=== PATIENT | male | born 1990 | race Caucasian/White ===

== ENCOUNTER 2016-04-14 03:57 | Emergency (ER) | payer SELFPAY ==
[2016-04-14 05:28] LABS: ABSOLUTE EOSINOPHILS # (AUTO) 0.6 10^3/uL (0.0-0.6); ABSOLUTE MONOCYTES (AUTO) 0.9 10^3/uL (0.1-1.4); BASOPHILS % (AUTO) 0.4 % (0-2); EOSINOPHILS % (AUTO) 4.9 % (0-6); HEMATOCRIT 44.6 % (37.9-51.0); HEMOGLOBIN 15.2 g/dL (13.5-17.0); LYMPHOCYTES % (AUTO) 17.3 % (13-45); MEAN CORPUSCULAR HEMOGLOBIN 29.7 pg (27.0-33.4); MEAN CORPUSCULAR HGB CONC 34.1 g/dL (32.0-36.0); MEAN CORPUSCULAR VOLUME 87 fl (80-97); MONOCYTES % (AUTO) 8.2 % (3-13); RED BLOOD COUNT 5.13 10^6/uL (4.35-5.55); RED CELL DISTRIBUTION WIDTH 12.9 % (11.5-14.0); SEGMENTED NEUTROPHILS % (AUTO) 69.2 % (42-78); WHITE BLOOD COUNT 11.6 10^3/uL (4.0-10.5)
[2016-04-14 05:45] LABS: AMORPHOUS SEDIMENT,URINE TRACE /HPF; APPEARANCE,URINE CLOUDY; BILIRUBIN,URINE NEGATIVE (NEGATIVE); GLUCOSE, URINE NEGATIVE (NEGATIVE); KETONES,URINE NEGATIVE (NEGATIVE); LEUKOCYTE ESTERASE,URINE NEGATIVE (NEGATIVE); NITRITE,URINE NEGATIVE (NEGATIVE); PROTEIN,URINE NEGATIVE (NEGATIVE); URINE SPECIFIC GRAVITY 1.013; UROBILINOGEN,URINE NEGATIVE mg/dL (<2.0)
[2016-04-14 05:53] LABS: ALANINE AMINOTRANSFERASE 29 U/L (21-72); ALBUMIN 3.5 g/dL (3.5-5.0); ALKALINE PHOSPHATASE 82 U/L (38-126); ANION GAP 9 (5-19); ASPARTATE AMINO TRANSFERASE 26 U/L (17-59); BILIRUBIN,TOTAL 0.5 mg/dL (0.2-1.3); BLOOD UREA NITROGEN 15 mg/dL (7-20); CALCIUM 9.2 mg/dL (8.4-10.2); CARBON DIOXIDE 26 mmol/L (22-30); CHLORIDE 106 mmol/L (98-107); CREATININE RESULT 1.07 mg/dL (0.52-1.25); GLUCOSE 86 mg/dL (75-110); POTASSIUM 4.1 mmol/L (3.6-5.0); SODIUM 141.3 mmol/L (137-145); TOTAL PROTEIN 6.9 g/dL (6.3-8.2)
[2016-04-14 05:55] LABS: ALCOHOL < 10 mg/dL (NONE DETECTED); URINE BARBITURATES SCREEN NEGATIVE; URINE METHADONE SCREEN NEGATIVE; URINE OPIATES LOW NEGATIVE; URINE PHENCYCLIDINE SCREEN NEGATIVE
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
[2016-04-14 09:28] VITALS: BP 112/57
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
--- NOTE | 2016-04-15 08:18 | EKG REPORT ---
SEVERITY:- NORMAL ECG - SINUS RHYTHM : Confirmed by: Samantha Montalvo MD 15-Apr-2016 08:17:02
== END 2016-04-14 11:35 | disposition home or self-care (01) ==
LOC: ER 03:57
DX: F25.9 Schizoaffective disorder, unspecified (principal)
CPT/HCPCS: 36415; 80053; 80307; 81001; 85025; 93005; 93010; 99285

== ENCOUNTER 2016-07-15 13:15 | Emergency (ER) | payer SELFPAY ==
--- NOTE | 2016-07-15 13:48 | ER Document Report ---
ED Psych Disorder / Suicide - General Mode of Arrival: Ambulatory TRAVEL OUTSIDE OF THE [place] IN LAST 30 DAYS: No - HPI Patient complains to provider of: Other Normal mood: No Similar symptoms previously: Yes <SUZI JUNG - Last Filed: 07/15/16 14:00> <STANLEY PATEL - Last Filed: 07/15/16 18:52> - General Chief Complaint: Psych Problem Stated Complaint: PSYCH EVAL Time Seen by Provider: 07/15/16 13:36 Notes: Patient is a 25-year-old male that presents to the emergency department today secondary to auditory hallucinations. According to friend at bedside the patient has diagnosed schizophrenia and has not been sleeping recently. Patient denies any pain. (SUZI JUNG) - Related Data Allergies/Adverse Reactions: No Known Allergies Allergy (Verified 04/14/16 04:00) Home Medications: Current Home Medications Amphet Asp/Amphet/D-Amphet [Dextroamp-Amphet ER 20 mg Cap] 07/15/16 [History] Aripiprazole [Abilify Maintena] 300 mg IM Q30D 07/15/16 [History] Prazosin HCl [Prazosin HCl] 1 cap PO DAILY 07/15/16 [History] Past Medical History - General Information source: [facility] Records - Social History Smoking Status: Unknown if Ever Smoked Cigarette use (# per day): No Family History: Reviewed & Not Pertinent Patient has suicidal ideation: No Patient has homicidal ideation: No Pulmonary Medical History: Reports: Hx Asthma Psychiatric Medical History: Reports: Hx Attention Deficit Hyperactivity Disorder, Hx Schizophrenia - Immunizations Immunizations up to date: Yes Hx Diphtheria, Pertussis, Tetanus Vaccination: Yes <SUZI JUNG - Last Filed: 07/15/16 14:00> Review of Systems - Review of Systems -: Yes ROS unobtainable due to patient's medical condition <SUZI JUNG - Last Filed: 07/15/16 14:00> - Review of Systems Constitutional: No symptoms reported EENT: No symptoms reported Cardiovascular: No symptoms reported Respiratory: No symptoms reported Gastrointestinal: No symptoms reported Genitourinary: No symptoms reported Male Genitourinary: No symptoms reported Musculoskeletal: No symptoms reported Skin: No symptoms reported Hematologic/Lymphatic: No symptoms reported Neurological/Psychological: See HPI <STANLEY PATEL - Last Filed: 07/15/16 18:52> Physical Exam - Vital signs Interpretation: Normal - General General appearance: Appears well, Alert - HEENT Head: Normocephalic, Atraumatic Eyes: Normal Pupils: PERRL - Respiratory Respiratory status: No respiratory distress Chest status: Nontender Breath sounds: Normal Chest palpation: Normal - Cardiovascular Rhythm: Regular Heart sounds: Normal auscultation Murmur: No - Abdominal Inspection: Normal Distension: No distension Bowel sounds: Normal Tenderness: Nontender Organomegaly: No organomegaly - Back Back: Normal, Nontender - Extremities General upper extremity: Normal inspection, Nontender, Normal color, Normal ROM , Normal temperature General lower extremity: Normal inspection, Nontender, Normal color, Normal ROM , Normal temperature, Normal weight bearing. No: Sami's sign - Neurological Neuro grossly intact: Yes Cognition: Normal Orientation: AAOx4 [place] Coma Scale Eye Opening: Spontaneous [place] Coma Scale Verbal: Oriented [place] Coma Scale Motor: Obeys Commands [place] Coma Scale Total: 15 Speech: Normal Motor strength normal: LUE, RUE, LLE, RLE Sensory: Normal - Psychological Associated symptoms: Anxious, Restlessness - Skin Skin Temperature: Warm Skin Moisture: Dry Skin Color: Normal <STANLEY PATEL - Last Filed: 07/15/16 18:52> - Vital signs Vitals: Temp Pulse Resp BP Pulse Ox 98.2 F 107 H 14 114/79 97 07/15/16 13:19 07/15/16 13:19 07/15/16 13:19 07/15/16 13:19 07/15/16 13:19 Course - Laboratory Result Diagrams: 07/15/16 13:49 07/15/16 13:49 <SUZI JUNG - Last Filed: 07/15/16 14:00> - Laboratory Result Diagrams: 07/15/16 13:49 07/15/16 13:49 <STANLEY PATEL - Last Filed: 07/15/16 18:52> - Re-evaluation Re-evalutation: 07/15/16 14:33 Patient is a 25-year-old male who was brought in by a friend of his for hallucinations and persecutory delusions 07/15/16 18:12 Patient is medically stable at this time. Patient has been evaluated by mental health and they recommend that he be monitored overnight and be given [id number] IM in am. Medication orders have been put in for this patient. Patient was discussed with his mother states that the patient has been increasingly agitated lately. Patient is stable at this time and will be reevaluated by mental health in the morning. (STANLEY PATEL) - Vital Signs Vital signs: Temp Pulse Resp BP Pulse Ox 98.2 F 64 16 129/66 H 96 07/15/16 18:22 07/15/16 18:22 07/15/16 18:22 07/15/16 18:22 07/15/16 18:22 - Laboratory Laboratory results interpreted by me: 07/15/16 07/15/16 07/15/16 13:49 13:49 13:55 RBC 5.66 H Chloride 108 H Urine Ketones TRACE H Salicylates < 1.0 L Acetaminophen < 10 L Discharge <SUZI JUNG - Last Filed: 07/15/16 14:00> <STANLEY PATEL - Last Filed: 07/15/16 18:52> - Discharge Clinical Impression: Hallucinations Schizophrenia Qualifiers: Schizophrenia type: other Qualified Code(s): F20.89 - Other schizophrenia; F20.8 - Other schizophrenia Condition: Stable Disposition: OTHER Scribe Attestation: 07/15/16 18:51 I personally performed the services described in the documentation, reviewed and edited the documentation which was dictated to the scribe in my presence, and it accurately records my words and actions. (STANLEY PATEL) Scribe Documentation - Scribe Written by Lexus:: Lexus Guevara, 07/15/2016 1404 acting as scribe for :: Maia <SUZI JUNG - Last Filed: 07/15/16 14:00>
[2016-07-15 14:01] LABS: ABSOLUTE BASOPHILS # (AUTO) 0.1 10^3/uL (0.0-0.2); ABSOLUTE EOSINOPHILS # (AUTO) 0.2 10^3/uL (0.0-0.6); ABSOLUTE LYMPHOCYTES (AUTO) 1.3 10^3/uL (0.5-4.7); ABSOLUTE MONOCYTES (AUTO) 0.7 10^3/uL (0.1-1.4); ABSOLUTE NEUT (AUTO) 7.5 10^3/uL (1.7-8.2); BASOPHILS % (AUTO) 0.5 % (0-2); EOSINOPHILS % (AUTO) 1.9 % (0-6); HEMATOCRIT 49.4 % (37.9-51.0); HEMOGLOBIN 16.8 g/dL (13.5-17.0); LYMPHOCYTES % (AUTO) 13.4 % (13-45); MEAN CORPUSCULAR HEMOGLOBIN 29.7 pg (27.0-33.4); MEAN CORPUSCULAR VOLUME 87 fl (80-97); MONOCYTES % (AUTO) 7.2 % (3-13); RED BLOOD COUNT 5.66 10^6/uL (4.35-5.55); RED CELL DISTRIBUTION WIDTH 13.3 % (11.5-14.0); WHITE BLOOD COUNT 9.8 10^3/uL (4.0-10.5)
[2016-07-15 14:13] LABS: APPEARANCE,URINE SLIGHTLY-CLOUDY; BILIRUBIN,URINE NEGATIVE (NEGATIVE); GLUCOSE, URINE NEGATIVE (NEGATIVE); KETONES,URINE TRACE mg/dL (NEGATIVE); LEUKOCYTE ESTERASE,URINE NEGATIVE (NEGATIVE); NITRITE,URINE NEGATIVE (NEGATIVE); PROTEIN,URINE NEGATIVE (NEGATIVE); URINE SPECIFIC GRAVITY 1.026; UROBILINOGEN,URINE NEGATIVE mg/dL (<2.0)
[2016-07-15 14:18] LABS: ALANINE AMINOTRANSFERASE 31 U/L (21-72); ALBUMIN 4.4 g/dL (3.5-5.0); ALKALINE PHOSPHATASE 81 U/L (38-126); ANION GAP 11 (5-19); ASPARTATE AMINO TRANSFERASE 21 U/L (17-59); BILIRUBIN,DIRECT 0.4 mg/dL (0.0-0.4); BILIRUBIN,TOTAL 0.8 mg/dL (0.2-1.3); BLOOD UREA NITROGEN 18 mg/dL (7-20); CALCIUM 9.8 mg/dL (8.4-10.2); CARBON DIOXIDE 23 mmol/L (22-30); CHLORIDE 108 mmol/L (98-107); CREATININE RESULT 0.89 mg/dL (0.52-1.25); GLUCOSE 96 mg/dL (75-110); POTASSIUM 4.2 mmol/L (3.6-5.0); SODIUM 142.4 mmol/L (137-145); TOTAL PROTEIN 7.9 g/dL (6.3-8.2)
[2016-07-15 14:21] LABS: ALCOHOL < 10 mg/dL (NONE DETECTED)
[2016-07-15 14:29] LABS: URINE BARBITURATES SCREEN NEGATIVE; URINE METHADONE SCREEN NEGATIVE; URINE OPIATES LOW UNCONFIRMED POSITIVE; URINE PHENCYCLIDINE SCREEN NEGATIVE
--- NOTE | 2016-07-15 18:40 | EKG REPORT ---
SEVERITY:- NORMAL ECG - SINUS RHYTHM : Confirmed by: Rudolph Dean MD 15-Jul-2016 18:39:37
[2016-07-15] MEDS ORDERED: FLUPHENAZINE HCL 2.5 MG TABLET PO SCH (19:00)
[2016-07-15] MEDS ORDERED: CLONAZEPAM 1 MG TABLET PO ONE (20:36)
--- NOTE | 2016-07-15 20:36 | ER Document Report ---
Doctor's Note Notes: 07/15/16 20:36 Patient's mother reports that the patient takes Klonopin 0.5 mg 3 times a day for anxiety and agitation. We have not yet confirmed this with the pharmacy. I will give him a single dose this evening and we will attempt to confirm this with pharmacy in the morning.
[2016-07-15] MEDS ORDERED: NICOTINE 21 MG/24 HR PATCH.TD24 TD ONE (21:25)
[2016-07-16] MEDS ORDERED: ZOLPIDEM TARTRATE 5 MG TABLET PO PRN ×2 (01:24→01:54)
[2016-07-16] MEDS ORDERED: CLONAZEPAM 1 MG TABLET PO ONE (06:30)
--- NOTE | 2016-07-16 09:24 | ER Document Report ---
Doctor's Note Notes: 07/16/16 09:24 Patient evaluated at bedside, resting comfortably on stretcher, no needs at this time, chart and lab findings were reviewed as well as vital signs, pending plan and disposition per mental health
[2016-07-16] MEDS ORDERED: CLONAZEPAM 1 MG TABLET PO SCH ×2 (10:00→14:00)
[2016-07-16] MEDS ORDERED: FLUPHENAZINE HCL 2.5 MG TABLET PO SCH (10:00)
[2016-07-16] MEDS ORDERED: HALOPERIDOL 5 MG TABLET PO SCH (10:15)
[2016-07-16] MEDS ORDERED: DIPHENHYDRAMINE HCL 50 MG/ML VIAL IM ONE ×2 (13:34→16:45)
[2016-07-16] MEDS ORDERED: LORAZEPAM INJ 2 MG/1 ML VIAL IM ONE ×2 (13:34→16:45)
[2016-07-16] MEDS ORDERED: HALOPERIDOL LACTATE INJ 5 MG/1 ML VIAL IM ONE (16:45)
[2016-07-16] MEDS ORDERED: HALOPERIDOL 5 MG TABLET PO ONE (18:15)
[2016-07-16] MEDS ORDERED: NICOTINE 21 MG/24 HR PATCH.TD24 TD ONE (18:57)
[2016-07-16] MEDS ORDERED: (PENDING PHARMACY ID) (Prazosin Hcl [Prazosin Hcl] 1 MG) PO SCH (22:00)
[2016-07-16] MEDS ORDERED: DOXAZOSIN MESYLATE 1 MG TABLET PO SCH (22:00)
[2016-07-16] MEDS: OLANZAPINE INJ/PF 10 MG SDV IM PRN (22:45)
[2016-07-17] MEDS ORDERED: HALOPERIDOL 5 MG TABLET PO SCH (10:00)
[2016-07-17] MEDS: OLANZAPINE INJ/PF 10 MG SDV IM PRN (14:42)
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
--- NOTE | 2016-07-17 15:33 | PSYCHOLOGICAL NOTE ---
Psych Note - Psych Note Psych Note: Patient is a 25-year-old male that presents to the emergency department today secondary to auditory hallucinations. According to friend at bedside the patient has diagnosed schizophrenia and has not been sleeping recently. Patient denies any pain. Conducted checking with patient Patient states he "feels good exactly the same when he did yesterday." Patient is noted by [facility] staff to be pacing easily agitated and interacting with hallucinations. Clinician notified patient eloped however was quickly found and brought back to [facility] ED. behavior has dramatically increased necessitating 4 point restraint. 295.90 (F20.9) schizophrenia per history provided by patient's mother Impression\\plan: Patient is recommended for IVC. Patient is demonstrating increased psychosis symptoms. patient appeared to be guarded yesterday; however , today he appears to be disinhibited and is now actively engaging with his internal stimuli. Patient will be reevaluated. Dr. Huitron was consulted and the care and management of this patient; attending physician is in agreement with recommendations and disposition.
--- NOTE | 2016-07-17 15:42 | ER Document Report ---
ED Psych Disorder / Suicide - General Chief Complaint: Psych Problem Stated Complaint: PSYCH EVAL Time Seen by Provider: 07/15/16 13:36 Mode of Arrival: Ambulatory TRAVEL OUTSIDE OF THE [place] IN LAST 30 DAYS: No - HPI Notes: Patient is a 25-year-old male that presents to the emergency department today secondary to auditory hallucinations. According to friend at bedside the patient has diagnosed schizophrenia and has not been sleeping recently. Patient denies any pain. Conducted checking with patient Patient disclosed he is doing well. He continued disclosed that he has a hard time being forced to stay. Patient is observed talking to himself while alone however when clinician entered the room patient immediately looked up and engaged. Patient eye contact was well-maintained. Patient's thought processes are currently organized and linear. Patient pain that he is like at being made to stay. Patient psychosis appears to be managed. Clinician spoke with patient's mother Disclosed the patient does not do well when forced to stay within 4 yepez. She states that normally he just walks miles all day. She continued disclosed that she does see an improvement from yesterday. She agrees the patient will improve significantly with his behavior if discharged. She states she is willing to ensure the patient follows up with mental health appointments. 295.90 (F20.9) schizophrenia per history provided by patient's mother Impression\\plan: Patient is recommended for rescind of IVC and is considered psychiatrically clear for discharge. Patient no longer meets criteria per [place] GS 120 2C. Patient denies suicidal and homicidal ideation. Patient psychosis appears to be functioning at baseline per patient's mother. Patient's behavior has increasingly become agitated however this is believed to be due to forced to be remain within 4 yepez. Patient normally spends his days walking around outside. Mother and roommates agreed to be part of discharge plan to ensure patient follows mental health recommendations of taking medication and following up with provider. Dr. Huitron was consulted and the care and management of this patient; attending physician is in agreement with recommendations and disposition. - Related Data Allergies/Adverse Reactions: No Known Allergies Allergy (Verified 04/14/16 04:00) Home Medications: Current Home Medications Aripiprazole [Abilify Maintena] 300 mg IM Q30D 07/15/16 [History] Prazosin HCl [Prazosin HCl] 1 mg PO QHS 07/15/16 [History] Zolpidem Tartrate [Ambien 5 mg Tablet] 5 mg PO HSP PRN 07/15/16 [History] Past Medical History - General Information source: [facility] Records - Social History Smoking Status: Unknown if Ever Smoked Cigarette use (# per day): No Chew tobacco use (# tins/day): No Drug Abuse: Marijuana Family History: Reviewed & Not Pertinent Patient has suicidal ideation: No Patient has homicidal ideation: No Pulmonary Medical History: Reports: Hx Asthma Renal/ Medical History: Denies: Hx Peritoneal Dialysis Psychiatric Medical History: Reports: Hx Attention Deficit Hyperactivity Disorder, Hx Schizophrenia Surgical Hx: Negative - Immunizations Immunizations up to date: Yes Hx Diphtheria, Pertussis, Tetanus Vaccination: Yes Physical Exam - Vital signs Vitals: Temp Pulse Resp BP Pulse Ox 98.2 F 107 H 14 114/79 97 07/15/16 13:19 07/15/16 13:19 07/15/16 13:19 07/15/16 13:19 07/15/16 13:19 Course - Vital Signs Vital signs: Temp Pulse Resp BP Pulse Ox 98.1 F 61 18 125/70 99 07/17/16 05:55 07/17/16 05:55 07/17/16 05:55 07/17/16 05:55 07/17/16 05:55 - Laboratory Result Diagrams: 07/15/16 13:49 07/15/16 13:49 Laboratory results interpreted by me: 07/15/16 07/15/16 07/15/16 13:49 13:49 13:55 RBC 5.66 H Chloride 108 H Urine Ketones TRACE H Salicylates < 1.0 L Acetaminophen < 10 L Discharge - Discharge Clinical Impression: Hallucinations Schizophrenia Qualifiers: Schizophrenia type: other Qualified Code(s): F20.89 - Other schizophrenia Condition: Stable Disposition: HOME, SELF-CARE Additional Instructions: Schizophrenia Schizophrenia is a chemical disorder that affects how the brain functions. The exact cause is unknown, but it tends to run in families. It is NOT caused by emotional trauma. Schizophrenia causes disordered thinking, including unusual beliefs and inability to "process" happenings around the patient. Patients with schizophrenia benefit greatly from medicine. These medicines are called antipsychotics. Never stop the medicine without the doctor 's approval. Counselling may help the patient deal with his disease. Schizophrenics require a very ordered environment. Stresses and sudden changes may bring out symptoms. Drugs and alcohol abuse may become problems. Contact the counsellor or crisis line if there are thoughts of suicide or of harming others, or if you become aware of unusual thoughts or beliefs Hallucinations You seem to be having hallucinations. Hallucinations are seeing, hearing, or feeling things that don't exist. These symptoms commonly occur with drug abuse and schizophrenia. Drugs like PCP, LSD, MDMA, peyote, and "psychedelic mushrooms" can cause frightening hallucinations. Users of methamphetamine or crack cocaine often see and feel bugs crawling on their skin. Patients with schizophrenia may hear voices that no one else can hear. The delusions of schizophrenia often involve conspiracies or relationships that are not real. When symptoms are due to drug abuse, the mental state usually improves as the drug wears off. Someone you trust should be with you until you are better, to protect you and calm your fears. Tranquilizer medicine is helpful at controlling hallucinations, anxiety, and deluded thoughts. Get a proper diet and enough sleep. Most patients do very well when they get proper medical treatment and social support. You should return at once if your symptoms get worse, if you are having suicidal thoughts or thoughts about hurting others, or if you feel that you are in danger. AT ANY TIME, IF YOUR SYMPTOMS CHANGE SIGNIFICANTLY OR WORSEN OR YOU DEVELOP NEW SYMPTOMS, RETURN TO THE EMERGENCY DEPARTMENT IMMEDIATELY FOR RE-EVALUATION. OUR GOAL IS TO PROVIDE EXCELLENT MEDICAL CARE! WE HOPE THAT WE HAVE MET YOUR EXPECTATIONS DURING YOUR EMERGENCY DEPARTMENT VISIT AND THAT YOU FEEL YOU HAVE RECEIVED EXCELLENT CARE! Please follow-up with your mental health provider [facility] within 3-5 days. Referrals: [facility] [Outside] - Follow up in 3-5 days Scribe Attestation: 07/15/16 18:51 I personally performed the services described in the documentation, reviewed and edited the documentation which was dictated to the scribe in my presence, and it accurately records my words and actions.
--- NOTE | 2016-07-17 15:52 | ER Document Report ---
Doctor's Note Notes: 07/17/16 15:49 He has been resting comfortably, his mother is in the emergency room and willing to take him home, ensure his safety as well as follow-up, patient is in agreement with this plan and feels safe to be discharged as well, he was advised to follow-up with his mental health provider in the next 2-3 days or return if symptoms worsen Discharge - Discharge Clinical Impression: Hallucinations Schizophrenia Qualifiers: Schizophrenia type: other Qualified Code(s): F20.89 - Other schizophrenia Condition: Stable Disposition: HOME, SELF-CARE Additional Instructions: Schizophrenia Schizophrenia is a chemical disorder that affects how the brain functions. The exact cause is unknown, but it tends to run in families. It is NOT caused by emotional trauma. Schizophrenia causes disordered thinking, including unusual beliefs and inability to "process" happenings around the patient. Patients with schizophrenia benefit greatly from medicine. These medicines are called antipsychotics. Never stop the medicine without the doctor 's approval. Counselling may help the patient deal with his disease. Schizophrenics require a very ordered environment. Stresses and sudden changes may bring out symptoms. Drugs and alcohol abuse may become problems. Contact the counsellor or crisis line if there are thoughts of suicide or of harming others, or if you become aware of unusual thoughts or beliefs Hallucinations You seem to be having hallucinations. Hallucinations are seeing, hearing, or feeling things that don't exist. These symptoms commonly occur with drug abuse and schizophrenia. Drugs like PCP, LSD, MDMA, peyote, and "psychedelic mushrooms" can cause frightening hallucinations. Users of methamphetamine or crack cocaine often see and feel bugs crawling on their skin. Patients with schizophrenia may hear voices that no one else can hear. The delusions of schizophrenia often involve conspiracies or relationships that are not real. When symptoms are due to drug abuse, the mental state usually improves as the drug wears off. Someone you trust should be with you until you are better, to protect you and calm your fears. Tranquilizer medicine is helpful at controlling hallucinations, anxiety, and deluded thoughts. Get a proper diet and enough sleep. Most patients do very well when they get proper medical treatment and social support. You should return at once if your symptoms get worse, if you are having suicidal thoughts or thoughts about hurting others, or if you feel that you are in danger. AT ANY TIME, IF YOUR SYMPTOMS CHANGE SIGNIFICANTLY OR WORSEN OR YOU DEVELOP NEW SYMPTOMS, RETURN TO THE EMERGENCY DEPARTMENT IMMEDIATELY FOR RE-EVALUATION. OUR GOAL IS TO PROVIDE EXCELLENT MEDICAL CARE! WE HOPE THAT WE HAVE MET YOUR EXPECTATIONS DURING YOUR EMERGENCY DEPARTMENT VISIT AND THAT YOU FEEL YOU HAVE RECEIVED EXCELLENT CARE! Please follow-up with your mental health provider [facility] within 3-5 days. Prescriptions: Benztropine Mesylate [Cogentin 1 mg Tablet] 1 mg PO QHS #30 tablet Olanzapine [Zyprexa 5 mg Tablet] 10 mg PO QHS #30 tablet Olanzapine [Zyprexa 5 mg Tablet] 5 mg PO QAM #30 tablet Referrals: [facility] [Outside] - Follow up in 3-5 days Scribe Attestation: 07/15/16 18:51 I personally performed the services described in the documentation, reviewed and edited the documentation which was dictated to the scribe in my presence, and it accurately records my words and actions.
[2016-07-17] MEDS ORDERED: BENZTROPINE MESYLATE 1 MG TABLET PO ONE (15:56)
[2016-07-17] MEDS ORDERED: OLANZAPINE 5 MG TABLET PO ONE (15:56)
[2016-07-17 16:01] VITALS: BP 111/82
== END 2016-07-17 16:05 | disposition home or self-care (01) ==
LOC: ER 13:15
DX: F20.9 Schizophrenia, unspecified (principal); F41.9 Anxiety disorder, unspecified; J45.909 Unspecified asthma, uncomplicated; Z78.1 Physical restraint status; Z79.899 Other long term (current) drug therapy
CPT/HCPCS: 93005; 99285; 96372; 96374; 36415; 80307 ×4; 85025; 80053; 81001; 93010; J3490

== ENCOUNTER 2016-09-24 00:49 | Emergency (ER) | payer SELFPAY ==
--- NOTE | 2016-09-24 01:43 | ER Document Report ---
ED General - General Chief Complaint: EXHAUSTION Stated Complaint: WHOLE BODY PAIN Time Seen by Provider: 09/24/16 01:27 Notes: Patient is a 25-year-old male that comes to the emergency department for chief complaint of concerned that his psychiatric medications are not working. He states he is on Abilify, Klonopin, prazosin. He states that he has trouble sleeping at night, he feels like his thoughts are racing around in circles, he states he thinks he might need a medication adjustment. He states he spent most of the day pacing and now he is tired. He states he is eating and drinking normally, he denies hallucinations, SI or HI. He states he lives with a roommate. Past medical history of schizophrenia. TRAVEL OUTSIDE OF THE [place] IN LAST 30 DAYS: No - Related Data Allergies/Adverse Reactions: No Known Allergies Allergy (Verified 04/14/16 04:00) Past Medical History - General Information source: Patient - Social History Smoking Status: Never Smoker Lives with: Friend Family History: Reviewed & Not Pertinent Patient has suicidal ideation: No Patient has homicidal ideation: No Pulmonary Medical History: Reports: Hx Asthma Renal/ Medical History: Denies: Hx Peritoneal Dialysis Psychiatric Medical History: Reports: Hx Attention Deficit Hyperactivity Disorder, Hx Schizophrenia - Immunizations Immunizations up to date: Yes Hx Diphtheria, Pertussis, Tetanus Vaccination: Yes Review of Systems - Review of Systems Constitutional: See HPI EENT: No symptoms reported Cardiovascular: No symptoms reported Respiratory: No symptoms reported Gastrointestinal: No symptoms reported Genitourinary: No symptoms reported Male Genitourinary: No symptoms reported Musculoskeletal: See HPI Skin: No symptoms reported Hematologic/Lymphatic: No symptoms reported Neurological/Psychological: See HPI Physical Exam - Vital signs Vitals: Temp Pulse Resp BP Pulse Ox 98.9 F 96 16 120/70 97 09/24/16 00:53 09/24/16 00:53 09/24/16 00:53 09/24/16 00:53 09/24/16 00:53 Interpretation: Normal - General General appearance: Appears well, Alert In distress: None - Patient calm, alert, well-appearing. He is slightly disheveled and unshowered - HEENT Head: Normocephalic, Atraumatic Eyes: Normal Conjunctiva: Normal Extraocular movements intact: Yes Eyelashes: Normal Pupils: PERRL Sinus: Normal Nasal: Normal Mouth/Lips: Normal Mucous membranes: Normal Pharynx: Normal Neck: Normal - Respiratory Respiratory status: No respiratory distress Chest status: Nontender Breath sounds: Normal Chest palpation: Normal - Cardiovascular Rhythm: Regular Heart sounds: Normal auscultation Murmur: No - Abdominal Inspection: Normal Distension: No distension Bowel sounds: Normal Tenderness: Nontender Organomegaly: No organomegaly - Back Back: Normal, Nontender - Extremities General upper extremity: Normal inspection, Nontender, Normal color, Normal ROM , Normal temperature General lower extremity: Normal inspection, Nontender, Normal color, Normal ROM , Normal temperature, Normal weight bearing. No: Sami's sign - Neurological Neuro grossly intact: Yes Cognition: Normal Orientation: AAOx4 [place] Coma Scale Eye Opening: Spontaneous Sarina Coma Scale Verbal: Oriented [place] Coma Scale Motor: Obeys Commands Arg[place] Coma Scale Total: 15 Speech: Normal Motor strength normal: LUE, RUE, LLE, RLE Sensory: Normal - Psychological Associated symptoms: Normal affect, Normal mood. No: Aggressive, Agitated, Angry, Confused - patient appears calm and relaxed, patient is not confused, he answers questions appropriately, he does not appear to be responding to internal stimuli, he only occasionally makes eye contact - Skin Skin Temperature: Warm Skin Moisture: Dry Skin Color: Normal Course - Re-evaluation Re-evalutation: Patient alert, well-appearing, has unremarkable vital signs, soft abdomen, clear lungs, normal physical examination. No current symptoms other than feeling tired. Discussed follow-up with patient's psychiatrist, however he states that he really feels he needs to talk to a psychiatrist here today, states that he feels like he cannot keep his thoughts from racing and he thinks he needs a medication adjustment. No indication for additional workup, patient is medically cleared and wishes to speak to psychiatry. 09/24/16 05:45 Patient is resting calmly, no current complaints, he denies any current symptoms. Oriented and well appearing. He still states that he wants to wait and speak to psychiatry about his medications. - Vital Signs Vital signs: Temp Pulse Resp BP Pulse Ox 97.7 F 86 15 121/64 96 09/24/16 06:42 09/24/16 06:42 09/24/16 06:42 09/24/16 06:42 09/24/16 06:42 Discharge - Discharge Clinical Impression: Tiredness Schizophrenia Qualifiers: Schizophrenia type: unspecified Qualified Code(s): F20.9 - Schizophrenia, unspecified Condition: Stable Disposition: HOME, SELF-CARE Additional Instructions: Follow-up with your psychiatrist for additional management. Return to emergency department for any concerning symptoms or if something is not right.
[2016-09-24 08:04] VITALS: BP 128/69
== END 2016-09-24 08:08 | disposition home or self-care (01) ==
LOC: ER 00:49
DX: F20.9 Schizophrenia, unspecified (principal); Z79.899 Other long term (current) drug therapy; R53.83 Other fatigue; J45.909 Unspecified asthma, uncomplicated
CPT/HCPCS: 99283

== ENCOUNTER 2016-10-27 23:54 | Emergency (ER) | payer SELFPAY ==
--- NOTE | 2016-10-28 02:49 | ER Document Report ---
HPI - HPI Patient complains to provider of: anxiety Pain Level: Denies Context: Patient is a 26-year-old male that comes emergency department for chief complaint of anxiety. He has a past medical history of schizophrenia. He states he is compliant with his medications. He states he is regularly seeing his psychiatrist. He states that he went outside to "collect his thoughts" and he states a police department secretary came to him and asked if he was okay, he states that he was trying to get his thoughts straight and he was confused. He states they recommended he come in to the emergency department. He states he actually feels a lot better now, he states he feels calm. He denies SI or HI. He denies any hallucinations or hearing voices. He denies any pain, fever, or other complaints. He states he just needed a change of location to collect his thoughts. - DERM Skin Color: Normal, [place] Past Medical History - General Information source: Patient - Social History Smoking Status: Never Smoker Frequency of alcohol use: None Drug Abuse: None Lives with: Family Family History: Reviewed & Not Pertinent Pulmonary Medical History: Reports: Hx Asthma Renal/ Medical History: Denies: Hx Peritoneal Dialysis Psychiatric Medical History: Reports: Hx Attention Deficit Hyperactivity Disorder, Hx Schizophrenia Surgical Hx: Negative - Immunizations Immunizations up to date: Yes Hx Diphtheria, Pertussis, Tetanus Vaccination: Yes Vertical Provider Document - CONSTITUTIONAL General Appearance: WD/WN, No Apparent Distress - INFECTION CONTROL TRAVEL OUTSIDE OF THE [place] IN LAST 30 DAYS: No - HEENT HEENT: Atraumatic, Normocephalic - NECK Neck: Normal Inspection - RESPIRATORY Respiratory: Breath Sounds Normal, No Respiratory Distress O2 Sat by Pulse Oximetry: 98 - CARDIOVASCULAR Cardiovascular: Regular Rate, Regular Rhythm - GI/ABDOMEN Gastrointestinal: Abdomen Soft, Abdomen Non-Tender - MUSCULOSKELETAL/EXTREMETIES Musculoskeletal/Extremeties: MAEW, FROM, Non-Tender - NEURO Level of Consciousness: Awake, Alert, Appropriate - DERM Integumentary: Warm, Dry, No Rash Course - Re-evaluation Re-evalutation: Patient pleasant on my exam. Well-appearing. Sleeping peacefully and easily aroused. No concerns. No current complaints. No SI or HI. No anxiety now. Patient states he does not need anything, he just wants to rest and then go home. He states he lives with his mom. He states she can recall for his ride. Patient states he will return if something changes or is not right. - Vital Signs Vital signs: Temp Pulse Resp BP Pulse Ox 97.5 F 59 L 20 108/71 98 10/28/16 00:03 10/28/16 00:03 10/28/16 00:03 10/28/16 00:03 10/28/16 00:03 Discharge - Discharge Clinical Impression: Anxiety Condition: Stable Disposition: HOME, SELF-CARE Instructions: Anxiety ([facility]) Additional Instructions: The examination today does not show any concerning abnormalities. Please follow-up with your psychiatrist routinely. Return to the emergency department for any concerning symptoms or something is not right.
[2016-10-28 10:22] VITALS: BP 120/62
== END 2016-10-28 10:23 | disposition home or self-care (01) ==
LOC: ER 23:54
DX: F41.9 Anxiety disorder, unspecified (principal); F20.9 Schizophrenia, unspecified
CPT/HCPCS: 99283

== ENCOUNTER 2016-10-29 04:09 | Emergency (ER) | payer SELFPAY ==
--- NOTE | 2016-10-29 04:54 | ER Document Report ---
Doctor's Note Notes: 10/29/16 04:52 I performed a quick triage evaluation the patient. Patient presents with complaint that he wants psychiatric help. He says that he has a long history of psychiatric illnesses. He cannot tell me exactly what they are. He also mentions that he is has heart issues. He says he has never been actually diagnosed with heart issues however he thinks he has heart issues because he has had chest pain for approximately 4 years. He says he has never had this looked into. He currently does not have chest pain at this time. He also asked me about irregular heartbeats as he thinks he might have an irregular heartbeat yet he says he does not really know an irregular heartbeat is. Patient initially denied any pain anywhere else however I did today and exam on him. I listen to his heart lungs which were clear and he had no murmurs on his heart auscultation. I did not palpate his abdomen showed no signs of pain when palpating his abdomen. When I start to walk away he grabbed his left upper quadrant started acting esophagus hurt. He says that he now has pain in his abdomen despite him not having any pain when I initially palpated over the area. I will order baseline lab work as well as chest x-ray. I will put a consult for psych. Patient's care will be taken over and results reviewed by [facility] physician. Dictation of this chart was performed using voice recognition software; therefore, there may be some unintended grammatical errors.
[2016-10-29 05:02] LABS: ABSOLUTE BASOPHILS # (AUTO) 0.1 10^3/uL (0.0-0.2); ABSOLUTE EOSINOPHILS # (AUTO) 0.4 10^3/uL (0.0-0.6); ABSOLUTE NEUT (AUTO) 7.7 10^3/uL (1.7-8.2); BASOPHILS % (AUTO) 0.6 % (0-2); HEMATOCRIT 44.4 % (37.9-51.0); HEMOGLOBIN 14.9 g/dL (13.5-17.0); HGB HCT DIFFERENCE 0.3; LYMPHOCYTES % (AUTO) 17.8 % (13-45); MEAN CORPUSCULAR HEMOGLOBIN 29.8 pg (27.0-33.4); MEAN CORPUSCULAR HGB CONC 33.5 g/dL (32.0-36.0); MEAN CORPUSCULAR VOLUME 89 fl (80-97); MONOCYTES % (AUTO) 8.8 % (3-13); RED BLOOD COUNT 4.99 10^6/uL (4.35-5.55); SEGMENTED NEUTROPHILS % (AUTO) 68.8 % (42-78); WHITE BLOOD COUNT 11.1 10^3/uL (4.0-10.5)
[2016-10-29 05:15] LABS: ALANINE AMINOTRANSFERASE 26 U/L (21-72); ALBUMIN 3.6 g/dL (3.5-5.0); ALKALINE PHOSPHATASE 64 U/L (38-126); ANION GAP 10 (5-19); ASPARTATE AMINO TRANSFERASE 26 U/L (17-59); BILIRUBIN,DIRECT 0.2 mg/dL (0.0-0.4); BILIRUBIN,TOTAL 0.6 mg/dL (0.2-1.3); BLOOD UREA NITROGEN 24 mg/dL (7-20); CALCIUM 9.2 mg/dL (8.4-10.2); CARBON DIOXIDE 24 mmol/L (22-30); CHLORIDE 108 mmol/L (98-107); CREATININE RESULT 1.59 mg/dL (0.52-1.25); GLUCOSE 97 mg/dL (75-110); SODIUM 142.2 mmol/L (137-145); TOTAL PROTEIN 6.3 g/dL (6.3-8.2)
[2016-10-29 05:16] LABS: ALCOHOL < 10 mg/dL (NONE DETECTED)
[2016-10-29 05:25] LABS: APPEARANCE,URINE SLIGHTLY-CLOUDY; BILIRUBIN,URINE NEGATIVE (NEGATIVE); GLUCOSE, URINE NEGATIVE (NEGATIVE); KETONES,URINE NEGATIVE (NEGATIVE); LEUKOCYTE ESTERASE,URINE NEGATIVE (NEGATIVE); NITRITE,URINE NEGATIVE (NEGATIVE); PROTEIN,URINE NEGATIVE (NEGATIVE); URINE SPECIFIC GRAVITY 1.015; UROBILINOGEN,URINE NEGATIVE mg/dL (<2.0)
--- NOTE | 2016-10-29 05:35 | RADIOLOGY REPORT (SQ) ---
EXAM DESCRIPTION: CHEST SINGLE VIEW COMPLETED DATE/TIME: 10/29/2016 5:25 am REASON FOR STUDY: chest pain COMPARISON: Chest x-ray 11/14/2014 EXAM PARAMETERS: NUMBER OF VIEWS: One view. TECHNIQUE: Single frontal radiographic view of the chest acquired. RADIATION DOSE: NA LIMITATIONS: None. FINDINGS: LUNGS AND PLEURA: No consolidation, pneumothorax or pleural effusion. MEDIASTINUM AND HILAR STRUCTURES: No masses. Contour normal. HEART AND VASCULAR STRUCTURES: Heart normal in size. Normal vasculature. BONES: No acute findings. HARDWARE: None in the chest. IMPRESSION: No acute radiographic finding in the chest. TECHNICAL DOCUMENTATION: JOB ID: [id number]
[2016-10-29] MEDS ORDERED: NORMAL SALINE 1000 ML 1,000 ML IV ONE (05:43)
[2016-10-29 05:53] LABS: URINE BARBITURATES SCREEN NEGATIVE; URINE METHADONE SCREEN NEGATIVE; URINE OPIATES LOW NEGATIVE; URINE PHENCYCLIDINE SCREEN NEGATIVE
--- NOTE | 2016-10-29 05:56 | ER Document Report ---
ED General - General Chief Complaint: Psych Problem Stated Complaint: WEAKNESS Time Seen by Provider: 10/29/16 04:54 Notes: I initially performed triage evaluation of the patient. His laboratory work came back quickly and therefore I will just assume care and to disposition as well. Patient is a 26-year-old male who presents with complaints of wanting psychiatric help. Patient says he has a long history of mental illness. He says he does take medications but he cannot tell me the names of his medications. He does not admit to any suicidal homicidal ideations. He does not admit to hallucinations. He will not really tell me exactly what his psychiatric problem is. He says that he just cannot live the way he is living and that he needs psychiatric help again as his knee in the past. He does have a psychiatric history. He also says that he has had some chest pain. When I first walked room he asked me what an irregular heart beat was. He says he thinks he has one. I explained to him. He then said that he has a heart condition. I asked him if he has been ever diagnosed with a heart condition. He says he has not been diagnosed but he thinks he has one because he has intermittent chest pain for last several years. Never seen a doctor about it. He said that his heart looked at. He initially denies abdominal pain. After palpating his abdomen he is not having pain but then when I started walk when he suddenly grabbed his left upper quadrant start saying he had pain even though he had no pain when palpated over this area. He denies any vomiting. No diarrhea. He has no other complaints at this time. TRAVEL OUTSIDE OF THE [place] IN LAST 30 DAYS: No - Related Data Allergies/Adverse Reactions: No Known Allergies Allergy (Verified 10/28/16 00:03) Past Medical History - Social History Smoking Status: Unknown if Ever Smoked Frequency of alcohol use: None Drug Abuse: Prescription drugs Family History: Reviewed & Not Pertinent Patient has suicidal ideation: No Patient has homicidal ideation: No Pulmonary Medical History: Reports: Hx Asthma Renal/ Medical History: Denies: Hx Peritoneal Dialysis Psychiatric Medical History: Reports: Hx Attention Deficit Hyperactivity Disorder, Hx Schizophrenia - Immunizations Immunizations up to date: Yes Hx Diphtheria, Pertussis, Tetanus Vaccination: Yes Review of Systems - Review of Systems Notes: My Normal Review Basic REVIEW OF SYSTEMS: CONSTITUTIONAL : Denies fever, chills, or sweats. Denies recent illness. EENT: Denies eye, ear, throat, or mouth pain or symptoms. Denies nasal or sinus congestion. CARDIOVASCULAR: Intermittent chest pain RESPIRATORY: Denies cough, cold, or chest congestion. Denies shortness of breath, difficulty breathing, or wheezing. GASTROINTESTINAL: Left upper quadrant abdominal pain. Denies nausea, vomiting, or diarrhea. Denies constipation. Last BM: GENITOURINARY: Denies difficulty urinating, painful urination, burning, frequency, or blood in urine. MUSCULOSKELETAL: Denies neck or back pain or joint pain or swelling. SKIN: Denies rash or skin lesions. NEUROLOGICAL: Denies altered mental status or loss of consciousness. Denies headache. Denies weakness or paralysis or loss of use of either side. Denies problems with gait or speech. Denies sensory or motor loss. PSYCHIATRIC: Says "I have psychiatric illness". ALL OTHER SYSTEMS REVIEWED AND NEGATIVE. Physical Exam - Vital signs Vitals: Temp Pulse Resp BP Pulse Ox 97.5 F 77 16 121/74 99 10/29/16 04:20 10/29/16 04:20 10/29/16 04:20 10/29/16 04:20 10/29/16 04:20 - Notes Notes: General Appearance: Well nourished, alert, cooperative, no acute distress, no obvious discomfort. Well-appearing. Vitals: reviewed, See vital signs table. Head: no swelling or tenderness to the head Eyes: PERRL, EOMI, Conjuctiva clear Mouth: No decreasd moisture Neck: Supple, no neck tenderness, Lungs: No wheezing, No rales, No rhonci, No accessory muscle use, good air exchange bilaterally. Heart: Normal rate, Regular rythm, No murmur, no rub Abdomen: Normal BS, soft, No rigidity, no pain on initial palpation of the abdomen. Patient then suddenly grabbed his abdomen and started saying he had pain there. Some mild pain on repeat palpation of the left upper quadrant of the abdomen. Abdomen is very soft and nonsurgical.. No abdominal tenderness, No guarding, no rebound, no abdominal masses, no organomegaly Extremities: strength 5/5 in all extremities, good pulses in all extremities, no swelling or tenderness in the extremities, no edema. Skin: warm, dry, appropriate color, no rash Neuro: speech clear, oriented x 3, normal affect, responds appropriately to questions. Psychiatric: "I have a psychiatric illness". Patient has very flat, odd affect. Patient will quickly change topics without a good transition. Course - Re-evaluation Re-evalutation: 10/29/16 05:56 Patient's laboratory evaluation is unremarkable with exception of some renal insufficiency. I suspect this is probably related to dehydration. Patient admits that he has not been taking care of himself has not been drinking fluids or eating much food. I do feel the patient probably does require psychiatric evaluation and he is requesting it himself as well. Patient is on involuntary commitment paperwork. Patient is medically stable for psychiatric evaluation and placement after he receives his IV fluids. On reevaluation patient is no longer complaining of any abdominal pain or chest pain. Dictation of this chart was performed using voice recognition software; therefore, there may be some unintended grammatical errors. - Vital Signs Vital signs: Temp Pulse Resp BP Pulse Ox 97.5 F 77 16 121/74 99 10/29/16 04:20 10/29/16 04:20 10/29/16 04:20 10/29/16 04:20 10/29/16 04:20 - Laboratory Result Diagrams: 10/29/16 04:57 10/29/16 04:57 Laboratory results interpreted by me: 10/29/16 10/29/16 04:57 04:57 WBC 11.1 H Chloride 108 H BUN 24 H Creatinine 1.59 H Est GFR (Non-Af Amer) 54 L Salicylates < 1.0 L Acetaminophen < 10 L Discharge - Discharge Clinical Impression: Anxiety, Renal insufficiency, mild Chest pain Qualifiers: Chest pain type: unspecified Qualified Code(s): R07.9 - Chest pain, unspecified Condition: Stable Disposition: PSYCH HOSP/UNIT
--- NOTE | 2016-10-29 07:57 | EKG REPORT ---
SEVERITY:- NORMAL ECG - SINUS RHYTHM : Confirmed by: Rudolph Dean MD 29-Oct-2016 07:56:28
--- NOTE | 2016-10-29 09:39 | ER Document Report ---
Doctor's Note Notes: 10/29/16 09:38 Patient resting comfortably on stretcher, chart was reviewed including presentation, history, labs and vital signs, patient remained stable this morning, has no complaints, reports feeling much better, patient denies any suicidal or homicidal ideation, he has a plan to follow up with [facility] services where he is an established patient, he reports he feels as though he came in due to increased stress because he has been getting very little sleep recently, patient is able to contract for safety at this time and a review of chart reveals that he denies suicidal or homicidal thoughts even at his initial presentation, therefore IVC paperwork will be rescinded and patient will be discharged home with instructions for follow-up, advised to return at anytime if symptoms worsen Discharge - Discharge Clinical Impression: Anxiety, Renal insufficiency, mild Chest pain Qualifiers: Chest pain type: unspecified Qualified Code(s): R07.9 - Chest pain, unspecified Schizophrenia Qualifiers: Schizophrenia type: unspecified Qualified Code(s): F20.9 - Schizophrenia, unspecified Condition: Stable Disposition: HOME, SELF-CARE Additional Instructions: Schizophrenia Schizophrenia is a chemical disorder that affects how the brain functions. The exact cause is unknown, but it tends to run in families. It is NOT caused by emotional trauma. Schizophrenia causes disordered thinking, including unusual beliefs and inability to "process" happenings around the patient. Patients with schizophrenia benefit greatly from medicine. These medicines are called antipsychotics. Never stop the medicine without the doctor 's approval. Counselling may help the patient deal with his disease. Schizophrenics require a very ordered environment. Stresses and sudden changes may bring out symptoms. Drugs and alcohol abuse may become problems. Contact the counsellor or crisis line if there are thoughts of suicide or of harming others, or if you become aware of unusual thoughts or beliefs Please follow-up with [facility] upon discharge for your mental health services. AT ANY TIME, IF YOUR SYMPTOMS CHANGE SIGNIFICANTLY OR WORSEN OR YOU DEVELOP NEW SYMPTOMS, RETURN TO THE EMERGENCY DEPARTMENT IMMEDIATELY FOR RE-EVALUATION. OUR GOAL IS TO PROVIDE EXCELLENT MEDICAL CARE! WE HOPE THAT WE HAVE MET YOUR EXPECTATIONS DURING YOUR EMERGENCY DEPARTMENT VISIT AND THAT YOU FEEL YOU HAVE RECEIVED EXCELLENT CARE! Referrals: [facility] [Outside] - 10/29/16
--- NOTE | 2016-10-29 09:49 | ER Document Report ---
ED Psych Disorder / Suicide - General Chief Complaint: Psych Problem Stated Complaint: WEAKNESS Time Seen by Provider: 10/29/16 04:54 TRAVEL OUTSIDE OF THE [place] IN LAST 30 DAYS: No - HPI Notes: Patient is a 26-year-old male who presents with complaints of wanting psychiatric help. Patient says he has a long history of mental illness. He says he does take medications but he cannot tell me the names of his medications. He does not admit to any suicidal homicidal ideations. He does not admit to hallucinations. He will not really tell me exactly what his psychiatric problem is. He says that he just cannot live the way he is living and that he needs psychiatric help again as his knee in the past. He does have a psychiatric history. Patient disclosed that he is feeling much better than yesterday. When asked if he followed up with outpatient mental health provider, [facility], patient disclosed "not yet, I did not get there yet." Patient clearified that he went once; however, it has "been a while" since then. Patient confirms he has had contact with his mother however has been unable to get a hold for the last week. He believes this is because her boost mobile phone is out of minutes. He continued to report he does still live with his roommates and feels safe at home. Patient is alert and orientated to person place time and circumstance. Mood is euthymic with congruent affect. Patient denies suicidal and homicidal ideation. Patient denies current auditory and visual hallucinations. Delusions were absent and behavior is congruent with an intact reality based presentation (i.e. organized linear and rational thinking). Eye contact was well maintained. Intellectual abilities appear to be within average range. Attention and concentration are good. Insight, judgment, impulse control are fair. 295.90 (F20.9) schizophrenia per history Impression\\plan: Patient is considered psychiatrically clear for discharge. Patient does not meet IVC criteria per [place] GS 122C. Patient denies suicidal and homicidal ideation. This patient is known to the clinician. Patient is historically non-med compliant; however, current presentation is good. Delusions are absent and behaviors congruent with intact reality based presentation (i.e. organized, linear, rational thinking). Dr. Huitron was consulted and the care and management of this patient; attending physician is in agreement with recommendations and disposition. - Related Data Allergies/Adverse Reactions: No Known Allergies Allergy (Verified 10/28/16 00:03) Past Medical History - Social History Smoking Status: Unknown if Ever Smoked Frequency of alcohol use: None Drug Abuse: Prescription drugs Family History: Reviewed & Not Pertinent Patient has suicidal ideation: No Patient has homicidal ideation: No Pulmonary Medical History: Reports: Hx Asthma Renal/ Medical History: Denies: Hx Peritoneal Dialysis Psychiatric Medical History: Reports: Hx Attention Deficit Hyperactivity Disorder, Hx Schizophrenia - Immunizations Immunizations up to date: Yes Hx Diphtheria, Pertussis, Tetanus Vaccination: Yes Physical Exam - Vital signs Vitals: Temp Pulse Resp BP Pulse Ox 97.5 F 77 16 121/74 99 10/29/16 04:20 10/29/16 04:20 10/29/16 04:20 10/29/16 04:20 10/29/16 04:20 Course - Vital Signs Vital signs: Temp Pulse Resp BP Pulse Ox 97.5 F 77 16 121/74 99 10/29/16 04:20 10/29/16 04:20 10/29/16 04:20 10/29/16 04:20 10/29/16 04:20 - Laboratory Result Diagrams: 10/29/16 04:57 10/29/16 04:57 Laboratory results interpreted by me: 10/29/16 10/29/16 04:57 04:57 WBC 11.1 H Chloride 108 H BUN 24 H Creatinine 1.59 H Est GFR (Non-Af Amer) 54 L Salicylates < 1.0 L Acetaminophen < 10 L Discharge - Discharge Clinical Impression: Anxiety, Renal insufficiency, mild Chest pain Qualifiers: Chest pain type: unspecified Qualified Code(s): R07.9 - Chest pain, unspecified Schizophrenia Qualifiers: Schizophrenia type: unspecified Qualified Code(s): F20.9 - Schizophrenia, unspecified Condition: Stable Disposition: HOME, SELF-CARE Additional Instructions: Schizophrenia Schizophrenia is a chemical disorder that affects how the brain functions. The exact cause is unknown, but it tends to run in families. It is NOT caused by emotional trauma. Schizophrenia causes disordered thinking, including unusual beliefs and inability to "process" happenings around the patient. Patients with schizophrenia benefit greatly from medicine. These medicines are called antipsychotics. Never stop the medicine without the doctor 's approval. Counselling may help the patient deal with his disease. Schizophrenics require a very ordered environment. Stresses and sudden changes may bring out symptoms. Drugs and alcohol abuse may become problems. Contact the counsellor or crisis line if there are thoughts of suicide or of harming others, or if you become aware of unusual thoughts or beliefs Please follow-up with [facility] upon discharge for your mental health services. AT ANY TIME, IF YOUR SYMPTOMS CHANGE SIGNIFICANTLY OR WORSEN OR YOU DEVELOP NEW SYMPTOMS, RETURN TO THE EMERGENCY DEPARTMENT IMMEDIATELY FOR RE-EVALUATION. OUR GOAL IS TO PROVIDE EXCELLENT MEDICAL CARE! WE HOPE THAT WE HAVE MET YOUR EXPECTATIONS DURING YOUR EMERGENCY DEPARTMENT VISIT AND THAT YOU FEEL YOU HAVE RECEIVED EXCELLENT CARE! Referrals: [facility] [Outside] - 10/29/16
[2016-10-29 10:29] VITALS: BP 121/70
== END 2016-10-29 10:29 | disposition home or self-care (01) ==
LOC: ER 04:09
DX: F41.9 Anxiety disorder, unspecified (principal); F20.9 Schizophrenia, unspecified; N28.9 Disorder of kidney and ureter, unspecified; Z79.899 Other long term (current) drug therapy; J45.909 Unspecified asthma, uncomplicated; R10.12 Left upper quadrant pain
CPT/HCPCS: 93005; 99285; 96360; 36415; 80307 ×4; 85025; 80053; 81001; 71010; 93010; J7030

== ENCOUNTER 2016-11-04 23:07 | Emergency (ER) | payer MEDICAID, OTHER ==
[2016-11-05 03:10] LABS: ABSOLUTE BASOPHILS # (AUTO) 0.1 10^3/uL (0.0-0.2); ABSOLUTE EOSINOPHILS # (AUTO) 0.7 10^3/uL (0.0-0.6); ABSOLUTE LYMPHOCYTES (AUTO) 2.3 10^3/uL (0.5-4.7); ABSOLUTE MONOCYTES (AUTO) 0.5 10^3/uL (0.1-1.4); ABSOLUTE NEUT (AUTO) 6.7 10^3/uL (1.7-8.2); BASOPHILS % (AUTO) 0.8 % (0-2); EOSINOPHILS % (AUTO) 6.4 % (0-6); HEMATOCRIT 43.7 % (37.9-51.0); HEMOGLOBIN 15.2 g/dL (13.5-17.0); HGB HCT DIFFERENCE 1.9; LYMPHOCYTES % (AUTO) 22.7 % (13-45); MEAN CORPUSCULAR HEMOGLOBIN 30.9 pg (27.0-33.4); MEAN CORPUSCULAR HGB CONC 34.7 g/dL (32.0-36.0); MEAN CORPUSCULAR VOLUME 89 fl (80-97); MONOCYTES % (AUTO) 5.1 % (3-13); RED BLOOD COUNT 4.91 10^6/uL (4.35-5.55); RED CELL DISTRIBUTION WIDTH 13.3 % (11.5-14.0); WHITE BLOOD COUNT 10.2 10^3/uL (4.0-10.5)
[2016-11-05 03:22] LABS: ALANINE AMINOTRANSFERASE 24 U/L (21-72); ALBUMIN 3.7 g/dL (3.5-5.0); ALKALINE PHOSPHATASE 70 U/L (38-126); ANION GAP 13 (5-19); ASPARTATE AMINO TRANSFERASE 19 U/L (17-59); BILIRUBIN,DIRECT 0.3 mg/dL (0.0-0.4); BILIRUBIN,TOTAL 0.4 mg/dL (0.2-1.3); BLOOD UREA NITROGEN 13 mg/dL (7-20); CALCIUM 9.4 mg/dL (8.4-10.2); CARBON DIOXIDE 22 mmol/L (22-30); CHLORIDE 108 mmol/L (98-107); CREATININE RESULT 0.99 mg/dL (0.52-1.25); GLUCOSE 138 mg/dL (75-110); POTASSIUM 3.4 mmol/L (3.6-5.0); SODIUM 142.5 mmol/L (137-145); TOTAL PROTEIN 6.6 g/dL (6.3-8.2)
[2016-11-05 03:23] LABS: ALCOHOL < 10 mg/dL (NONE DETECTED)
--- NOTE | 2016-11-05 06:24 | ER Document Report ---
ED General - General Chief Complaint: Anxiety Stated Complaint: ANXIETY Time Seen by Provider: 11/05/16 02:12 Notes: Patient is a 26-year-old male who presents with complaint of worsening anxiety and agitation. He also says that he has a history of schizophrenia and feels that it is worsening. Patient says that he is on multiple psychiatric medications. He says he is out of some of them. He says that when his anxiety gets to this level he typically needs inpatient care. He denies any suicidal homicidal ideations. He has no other complaints at this time. TRAVEL OUTSIDE OF THE [place] IN LAST 30 DAYS: No - Related Data Allergies/Adverse Reactions: No Known Allergies Allergy (Verified 10/28/16 00:03) Past Medical History - Social History Smoking Status: Current Every Day Smoker Chew tobacco use (# tins/day): No Frequency of alcohol use: None Drug Abuse: Marijuana Family History: Reviewed & Not Pertinent Patient has suicidal ideation: No Patient has homicidal ideation: No Pulmonary Medical History: Reports: Hx Asthma Renal/ Medical History: Denies: Hx Peritoneal Dialysis Psychiatric Medical History: Reports: Hx Attention Deficit Hyperactivity Disorder, Hx Bipolar Disorder, Hx Schizophrenia Surgical Hx: Negative - Immunizations Immunizations up to date: Yes Hx Diphtheria, Pertussis, Tetanus Vaccination: Yes Review of Systems - Review of Systems Notes: My Normal Review Basic REVIEW OF SYSTEMS: CONSTITUTIONAL : Denies fever, chills, or sweats. Denies recent illness. EENT: Denies eye, ear, throat, or mouth pain or symptoms. Denies nasal or sinus congestion. RESPIRATORY: Denies cough, cold, or chest congestion. Denies shortness of breath, difficulty breathing, or wheezing. GASTROINTESTINAL: Denies abdominal pain. Denies nausea, vomiting, or diarrhea. Denies constipation. Last BM: MUSCULOSKELETAL: Denies neck or back pain or joint pain or swelling. SKIN: Denies rash or skin lesions. NEUROLOGICAL: Denies altered mental status or loss of consciousness. Denies headache. Denies weakness or paralysis or loss of use of either side. Denies problems with gait or speech. Denies sensory or motor loss. ALL OTHER SYSTEMS REVIEWED AND NEGATIVE. Physical Exam - Vital signs Vitals: Temp Pulse Resp BP Pulse Ox 98.3 F 84 16 125/77 99 11/04/16 23:16 11/04/16 23:16 11/04/16 23:16 11/04/16 23:16 11/04/16 23:16 - Notes Notes: General Appearance: Well nourished, alert, cooperative, no acute distress, no obvious discomfort. Well-appearing. Vitals: reviewed, See vital signs table. Head: no swelling or tenderness to the head Eyes: PERRL, EOMI, Conjuctiva clear Mouth: No decreasd moisture Lungs: No wheezing, No rales, No rhonci, No accessory muscle use, good air exchange bilaterally. Heart: Normal rate, Regular rythm, No murmur, no rub Abdomen: Normal BS, soft, No rigidity, No abdominal tenderness, No guarding, no rebound Extremities: strength 5/5 in all extremities, good pulses in all extremities, no swelling or tenderness in the extremities, no edema. Skin: warm, dry, appropriate color, no rash Neuro: speech clear, oriented x 3, normal affect, responds appropriately to questions. Course - Re-evaluation Re-evalutation: 11/05/16 06:24 Patient says that he may need inpatient psychiatric care. Informed him that I did not no if there are any available inpatient psychiatric beds. I told him we will first start off with him just seeing our psychiatrist here this morning and talked to them and see if they feel that that is necessary. At this time I feel he is medically stable for psychiatric evaluation. He is not on involuntary commitment paperwork. He does not meet criteria for involuntary commitment being that he is not suicidal or homicidal and is not having hallucinations. Dictation of this chart was performed using voice recognition software; therefore, there may be some unintended grammatical errors. - Vital Signs Vital signs: Temp Pulse Resp BP Pulse Ox 98.3 F 84 16 125/77 99 11/04/16 23:16 11/04/16 23:16 11/04/16 23:16 11/04/16 23:16 11/04/16 23:16 - Laboratory Result Diagrams: 11/05/16 02:50 11/05/16 02:50 Laboratory results interpreted by me: 11/05/16 11/05/16 02:50 02:50 Eosinophils % 6.4 H Absolute Eosinophils 0.7 H Potassium 3.4 L Chloride 108 H Glucose 138 H Salicylates < 1.0 L Acetaminophen < 10 L Discharge - Discharge Clinical Impression: Anxiety Schizophrenia Qualifiers: Schizophrenia type: unspecified Qualified Code(s): F20.9 - Schizophrenia, unspecified Condition: Stable Disposition: PSYCH HOSP/UNIT Instructions: Anxiety ([facility])
--- NOTE | 2016-11-05 08:05 | EKG REPORT ---
SEVERITY:- ABNORMAL ECG - SINUS BRADYCARDIA PROBABLE LEFT VENTRICULAR HYPERTROPHY : Confirmed by: Cherelle Calhoun 05-Nov-2016 08:03:52
[2016-11-05 08:14] LABS: APPEARANCE,URINE CLEAR; BILIRUBIN,URINE NEGATIVE (NEGATIVE); GLUCOSE, URINE NEGATIVE (NEGATIVE); KETONES,URINE NEGATIVE (NEGATIVE); LEUKOCYTE ESTERASE,URINE NEGATIVE (NEGATIVE); NITRITE,URINE NEGATIVE (NEGATIVE); PROTEIN,URINE NEGATIVE (NEGATIVE); URINE SPECIFIC GRAVITY 1.019; UROBILINOGEN,URINE NEGATIVE mg/dL (<2.0)
[2016-11-05 08:28] LABS: URINE BARBITURATES SCREEN NEGATIVE; URINE METHADONE SCREEN NEGATIVE; URINE OPIATES LOW NEGATIVE; URINE PHENCYCLIDINE SCREEN NEGATIVE
--- NOTE | 2016-11-05 09:58 | ER Document Report ---
ED Psych Disorder / Suicide <KAMILLE ROSEN - Last Filed: 11/05/16 10:06> - General Mode of Arrival: Ambulatory Information source: Patient, [facility] Records TRAVEL OUTSIDE OF THE [place] IN LAST 30 DAYS: No - HPI Patient complains to provider of: Other - Anxiety, Panic attack Onset: Yesterday Onset was: Sudden Suicide Risk Factors: Male, Schizophrenia Normal mood: Yes Associated symptoms: Normal affect, Normal mood Similar symptoms previously: Yes Recently seen / treated by doctor: Yes <CHILO MARRERO - Last Filed: 11/05/16 10:40> - General Chief Complaint: Anxiety Stated Complaint: ANXIETY Time Seen by Provider: 11/05/16 02:12 - HPI Notes: Conducted initial evaluation on 11/05/2016 at 830. Patient is a 26 year old male who presented to the ED last evening for anxiety. He described his episode last evening as a "panic attack, felt anxious, felt bad, stuff was closing in on , and he couldn't sit still." Patient stated he feels better today, he is glad, and he was able to calm down once in the ED. He identified his outpatient provider is [facility] and it has been awhile since his last appointment. He reported he is prescribed Adderall, Klonopin, Abilify, and Prazosin. He stated he has all but the Adderall available. He said he did not have his Klonopin with him when he had his panic attack yesterday. Patient was alert and oriented x4. Mood was euthymic with congruent affect. He denied SI/HI. He did not appear to be responding to internal stimuli AEB fair eye contact, staying on topic, and answering questions appropriately when addressed. Thought processes were linear and organized. Conversational speech was WNL for rate, tone and prosody. Intellectual abilities are estimated to be average. Insight, judgment and impulse control are fair AEB his ability to process his "panic attack" and identify symptoms. Per chart review patient was seen in the ED by medical only on 10/27/2016 for Anxiety. He was supposed to have followed up with [facility] prior to that visit and had not. The [facility] team last saw patient on 07/16/2016 for auditory hallucinations. He had been off medications at that time, they were restarted, he stayed overnight, and was discharged the following day with follow up. Diagnosis: 296.80 (F31.9) Unspecified Bipolar and Related Disorder R/O 295.90 (F20.9) Schizophrenia by History Impression/Plan: Patient is psychiatrically cleared for discharge. He does not meet [place] IVC criteria. He denied SI/HI, no statements or gestures were made while in the ED, and these were not presenting concerns. No psychosis observed. Patient appears to be at his baseline. Patient instructed to go to [facility] as a walk in directly upon discharge from the ED. Patient provided with outpatient resource list which documented walk in to [facility], as well as emphasized both MCM numbers. Consulted with Dr. Huitron regarding the management and care of patient. ED Physician in agreement with recommendations. (CHILO MARRERO) - Related Data Allergies/Adverse Reactions: No Known Allergies Allergy (Verified 10/28/16 00:03) Past Medical History - Social History Smoking Status: Current Every Day Smoker Chew tobacco use (# tins/day): No Frequency of alcohol use: None Drug Abuse: Marijuana Family History: Reviewed & Not Pertinent Patient has suicidal ideation: No Patient has homicidal ideation: No Pulmonary Medical History: Reports: Hx Asthma Renal/ Medical History: Denies: Hx Peritoneal Dialysis Psychiatric Medical History: Reports: Hx Attention Deficit Hyperactivity Disorder, Hx Bipolar Disorder, Hx Schizophrenia Surgical Hx: Negative - Immunizations Immunizations up to date: Yes Hx Diphtheria, Pertussis, Tetanus Vaccination: Yes <CHILO MARRERO - Last Filed: 11/05/16 10:40> - Vital signs Vitals: Temp Pulse Resp BP Pulse Ox 98.3 F 84 16 125/77 99 11/04/16 23:16 11/04/16 23:16 11/04/16 23:16 11/04/16 23:16 11/04/16 23:16 Course - Laboratory Result Diagrams: 11/05/16 02:50 11/05/16 02:50 <KAMILLE ROSEN - Last Filed: 11/05/16 10:06> - Laboratory Result Diagrams: 11/05/16 02:50 11/05/16 02:50 <CHILO MARRERO - Last Filed: 11/05/16 10:40> - Re-evaluation Re-evalutation: 11/05/16 10:06 Reviewed note patient will be discharged to follow-up at [facility]. Patient agrees to plan (KAMILLE ROSEN) - Vital Signs Vital signs: Temp Pulse Resp BP Pulse Ox 98.0 F 72 12 110/70 100 11/05/16 10:20 11/05/16 10:20 11/05/16 10:20 11/05/16 10:20 11/05/16 10:20 - Laboratory Laboratory results interpreted by me: 11/05/16 11/05/16 02:50 02:50 Eosinophils % 6.4 H Absolute Eosinophils 0.7 H Potassium 3.4 L Chloride 108 H Glucose 138 H Salicylates < 1.0 L Acetaminophen < 10 L Discharge <KAMILLE ROSEN - Last Filed: 11/05/16 10:06> <CHILO MARRERO - Last Filed: 11/05/16 10:40> - Discharge Clinical Impression: Anxiety Schizophrenia Qualifiers: Schizophrenia type: unspecified Qualified Code(s): F20.9 - Schizophrenia, unspecified Condition: Stable Disposition: HOME, SELF-CARE Instructions: Anxiety ([facility]) Additional Instructions: Anxiety The physician feels that some of your health problems are being caused by anxiety. Anxiety affects your health in many ways. Anxiety alone can cause palpitations, sweats, chest pains, abdominal pains, shortness of breath, and headaches. It contributes to ulcer disease, high blood pressure, irritable bowel syndrome, and has been shown to cause flare-ups of many other diseases. Anxiety is not a simple disorder to treat. If the anxiety is due to recent life stresses, you may simply need time to "work through" the changes. If the anxiety is due to an underlying unhappiness with yourself or due to psychiatric disturbance, professional help will be needed. Your physician can refer you for further help if needed. Anti-anxiety medication is occasionally given if the stress is acute or if you are having trouble sleeping. Chronic or frequent use of these medications is not a good idea because the body becomes reliant on it, preventing you from dealing with life's normal stresses. If symptoms occur again you should return to the emergency department or contact mobile crisis. Follow up: You will go directly to [facility] as a wlk-in upon discharge from the emergency department. Referrals: [facility] [Outside] - 11/05/16 11:00 am
[2016-11-05 10:21] VITALS: BP 110/70
== END 2016-11-05 10:21 | disposition home or self-care (01) ==
LOC: ER 23:07
DX: F41.0 Panic disorder [episodic paroxysmal anxiety] (principal); F20.9 Schizophrenia, unspecified; F31.9 Bipolar disorder, unspecified; F17.200 Nicotine dependence, unspecified, uncomplicated
CPT/HCPCS: 36415; 80053; 80307; 81001; 85025; 93005; 93010; 99284

== ENCOUNTER 2016-11-15 09:47 | Emergency (ER) | payer MEDICAID, OTHER ==
[2016-11-15 10:21] VITALS: BP 105/69
--- NOTE | 2016-11-15 10:24 | ER Document Report ---
ED General - General Chief Complaint: Anxiety Stated Complaint: ANXIETY Time Seen by Provider: 11/15/16 10:12 Mode of Arrival: Ambulatory Information source: Patient Notes: 26-year-old male history of anxiety bipolar who is on Cogentin clonazepam Abilify prozasin presents iw concerns of continued anxiety Patient denies any suicidal homicidal ideations wishes help for his anxiety TRAVEL OUTSIDE OF THE [place] IN LAST 30 DAYS: No - HPI Onset: Other Onset/Duration: Persistent Quality of pain: No pain Severity: Mild Pain Level: Denies Associated symptoms: None Exacerbated by: Denies Relieved by: Denies Similar symptoms previously: Yes Recently seen / treated by doctor: Yes - Related Data Allergies/Adverse Reactions: No Known Allergies Allergy (Verified 11/15/16 10:05) Past Medical History - Social History Smoking Status: Current Some Day Smoker Cigarette use (# per day): Yes Chew tobacco use (# tins/day): No Smoking Education Provided: No Frequency of alcohol use: None Drug Abuse: Marijuana Family History: Reviewed & Not Pertinent Patient has suicidal ideation: No Patient has homicidal ideation: No Pulmonary Medical History: Reports: Hx Asthma Renal/ Medical History: Denies: Hx Peritoneal Dialysis Psychiatric Medical History: Reports: Hx Attention Deficit Hyperactivity Disorder, Hx Bipolar Disorder, Hx Schizophrenia Surgical Hx: Negative - Immunizations Immunizations up to date: Yes Hx Diphtheria, Pertussis, Tetanus Vaccination: Yes Review of Systems - Review of Systems Notes: REVIEW OF SYSTEMS: CONSTITUTIONAL : Denies fever, chills, or sweats. Denies recent illness. EENT: Denies eye, ear, throat, or mouth pain or symptoms. Denies nasal or sinus congestion or discharge. Denies throat, tongue, or mouth swelling or difficulty swallowing. CARDIOVASCULAR: Denies chest pain. Denies palpitations or racing or irregular heart beat. Denies ankle edema. RESPIRATORY: Denies cough, cold, or chest congestion. Denies shortness of breath, difficulty breathing, or wheezing. GASTROINTESTINAL: Denies abdominal pain or distention. Denies nausea, vomiting , or diarrhea. Denies blood in vomitus, stools, or per rectum. Denies black, tarry stools. Denies constipation. GENITOURINARY: Denies difficulty urinating, painful urination, burning, frequency, blood in urine, or discharge. MUSCULOSKELETAL: Denies back or neck pain or stiffness. Denies joint pain or swelling. SKIN: Denies rash, lesions or sores. HEMATOLOGIC : Denies easy bruising or bleeding. LYMPHATIC: Denies swollen, enlarged glands. NEUROLOGICAL: Denies confusion or altered mental status. Denies passing out or loss of consciousness. Denies dizziness or lightheadedness. Denies headache. Denies weakness or paralysis or loss of use of either side. Denies problems with gait or speech. Denies sensory loss, numbness, or tingling. Denies seizures. PSYCHIATRIC: Admits to anxiety. ALL OTHER SYSTEMS REVIEWED AND NEGATIVE. Dictation was performed using [employer] voice recognition software PHYSICAL EXAMINATION: GENERAL: Well-appearing, well-nourished and in no acute distress. HEAD: Atraumatic, normocephalic. EYES: Pupils equal round and reactive to light, extraocular movements intact, sclera anicteric, conjunctiva are normal. ENT: Nares patent, oropharynx clear without exudates. Moist mucous membranes. NECK: Normal range of motion, supple without lymphadenopathy LUNGS: Breath sounds clear to auscultation bilaterally and equal. No wheezes rales or rhonchi. HEART: Regular rate and rhythm without murmurs ABDOMEN: Soft, nontender, nondistended abdomen. No guarding, no rebound. No masses appreciated. Musculoskeletal: Normal range of motion, no pitting or edema. No cyanosis. NEUROLOGICAL: Cranial nerves grossly intact. Normal speech, normal gait. Normal sensory, motor exams PSYCH: Normal mood, normal affect. SKIN: Warm, Dry, normal turgor, no rashes or lesions noted. Physical Exam - Vital signs Vitals: Temp Pulse Resp BP Pulse Ox 97.6 F 84 20 117/63 98 11/15/16 09:53 11/15/16 09:53 11/15/16 09:53 11/15/16 09:53 11/15/16 09:53 Course - Re-evaluation Re-evalutation: 11/15/16 10:24 Patient will be started on Vistaril, he notes he was on this in the past but does not have actually helped or not. Otherwise he appears well is in no distress After performing a Medical Screening Examination, I estimate there is LOW risk for any life threatening mental health issues. At this time the patient looks extremely well and has not attempted severe self harm. I have reevaluated this patient multiple times and no significant life threatening changes are noted. The patient and I have discussed the diagnosis and risks, and we agree with discharging home with close follow-up with the understanding that symptoms and presentations can change. We also discussed returning to the Emergency Department immediately if new or worsening symptoms occur. We have discussed the symptoms which are most concerning (hallucinations, thoughts or actions of self harm or harm to others) that necessitate immediate return. - Vital Signs Vital signs: Temp Pulse Resp BP Pulse Ox 97.6 F 84 20 117/63 98 11/15/16 09:53 11/15/16 09:53 11/15/16 09:53 11/15/16 09:53 11/15/16 09:53 Discharge - Discharge Clinical Impression: Anxiety Condition: Stable Disposition: HOME, SELF-CARE Instructions: Anxiety ([facility]) Additional Instructions: Follow up with your physician tomorrow for further care or return to the ED IMMEDIATELY if symptoms worsen or new concerns occur. If you cannot afford to follow up with your primary care physician a list of low cost clinics have been provided at the end of your discharge papers as well. Prescriptions: Hydroxyzine Pamoate [Vistaril 25 mg Capsule] 25 mg PO DAILY #30 capsule
== END 2016-11-15 10:22 | disposition home or self-care (01) ==
LOC: ER 09:47
DX: F41.9 Anxiety disorder, unspecified (principal); Z79.899 Other long term (current) drug therapy; F17.210 Nicotine dependence, cigarettes, uncomplicated
CPT/HCPCS: 99283

== ENCOUNTER 2016-11-15 23:51 | Emergency (ER) | payer MEDICAID, OTHER ==
[2016-11-16] MEDS ORDERED: OLANZAPINE 5 MG TABLET PO ONE (00:10)
[2016-11-16] MEDS ORDERED: BENZTROPINE MESYLATE 1 MG TABLET PO ONE (00:11)
[2016-11-16] MEDS ORDERED: HYDROXYZINE PAMOATE 25 MG CAPSULE PO ONE (00:11)
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
[2016-11-16 00:45] VITALS: BP 119/66
--- NOTE | 2016-11-16 16:46 | EKG REPORT ---
SEVERITY:- BORDERLINE ECG - SINUS RHYTHM PROBABLE LEFT ATRIAL ABNORMALITY : Confirmed by: Samantha Montalvo MD 16-Nov-2016 16:45:02
== END 2016-11-16 00:46 | disposition home or self-care (01) ==
LOC: ER 23:51
DX: Z76.0 Encounter for issue of repeat prescription (principal); F41.9 Anxiety disorder, unspecified; F31.9 Bipolar disorder, unspecified; F20.9 Schizophrenia, unspecified; Z79.899 Other long term (current) drug therapy; F17.200 Nicotine dependence, unspecified, uncomplicated
CPT/HCPCS: 93005; 99283; 99284; 93010; J3490 ×3

== ENCOUNTER 2016-11-20 23:30 | Emergency (ER) | payer OTHER, MEDICAID ==
[2016-11-21] MEDS ORDERED: IPRATROPIUM/ALBUTEROL 0.5-2.5 MG/3 ML AMPUL NEB ONE (00:22)
[2016-11-21] MEDS ORDERED: PREDNISONE 20 MG TABLET PO ONE (00:22)
[2016-11-21] MEDS ORDERED: ALBUTEROL SULFATE HFA (90 MCG/PUFF) 8 GM MDI (1 MDI/ER DISP) IH ONE (00:23)
--- NOTE | 2016-11-21 00:24 | ER Document Report ---
ED General - General Chief Complaint: Shortness Of Breath Stated Complaint: SHORT OF BREATH Time Seen by Provider: 11/20/16 23:59 Notes: Patient is a 26-year-old male with past medical history of asthma who presents with an acute asthma exacerbation. Patient states that he has been feeling wheezy and tight for the last 24 hours. Symptoms have been worsening since onset. He does arrive by EMS. He does not have any treatment available to him at home. He does not have a primary care physician. He does any form of exertion worsens his symptoms. He does also admit that he continues to smoke. He has not tried any to improve his symptoms. He has history of prior exacerbations but has never had to be hospitalized or intubated for his asthma as an adult. Denies any fever or constitutional symptoms. No cough or sputum production. TRAVEL OUTSIDE OF THE [place] IN LAST 30 DAYS: No - Related Data Allergies/Adverse Reactions: No Known Allergies Allergy (Verified 11/20/16 23:55) Past Medical History - General Information source: Patient - Social History Smoking Status: Current Every Day Smoker Chew tobacco use (# tins/day): No Frequency of alcohol use: None Drug Abuse: Marijuana Family History: Reviewed & Not Pertinent Pulmonary Medical History: Reports: Hx Asthma Renal/ Medical History: Denies: Hx Peritoneal Dialysis Psychiatric Medical History: Reports: Hx Attention Deficit Hyperactivity Disorder, Hx Bipolar Disorder, Hx Depression, Hx Schizophrenia Surgical Hx: Negative - Immunizations Immunizations up to date: Yes Hx Diphtheria, Pertussis, Tetanus Vaccination: Yes Review of Systems - Review of Systems Notes: Constitutional: Negative for fever. HENT: Negative for sore throat. Eyes: Negative for visual changes. Cardiovascular: Negative for chest pain. Respiratory: Positive for shortness of breath. Gastrointestinal: Negative for abdominal pain, vomiting or diarrhea. Genitourinary: Negative for dysuria. Musculoskeletal: Negative for back pain. Skin: Negative for rash. Neurological: Negative for headaches, weakness or numbness. 10 point ROS negative except as marked above and in HPI. Physical Exam - Vital signs Vitals: Temp Pulse Resp BP Pulse Ox 97.4 F 76 16 130/71 H 95 11/20/16 23:39 11/20/16 23:39 11/20/16 23:39 11/20/16 23:39 11/20/16 23:39 Interpretation: Normal Notes: PHYSICAL EXAMINATION: GENERAL: Well-appearing, well-nourished and in no acute distress. HEAD: Atraumatic, normocephalic. EYES: Pupils equal round and reactive to light, extraocular movements intact, sclera anicteric, conjunctiva are normal. ENT: nares patent, oropharynx clear without exudates. Moist mucous membranes. NECK: Normal range of motion, supple without lymphadenopathy LUNGS: Air movement is somewhat tight bilaterally, expiratory wheezing in all lung guillermo more prominent on the left. No tachypnea or respiratory distress. HEART: Regular rate and rhythm without murmurs ABDOMEN: Soft, nontender, normoactive bowel sounds. No guarding, no rebound. No masses appreciated. EXTREMITIES: Normal range of motion, no pitting or edema. No cyanosis. NEUROLOGICAL: No focal neurological deficits. Moves all extremities spontaneously and on command. PSYCH: Normal mood, normal affect. SKIN: Warm, Dry, normal turgor, no rashes or lesions noted. Course - Re-evaluation Re-evalutation: 11/21/16 00:23 Patient presents with a mild exacerbation of their baseline asthma. Mild wheezing at time of presentation but vitals do not show significant hypoxemia or tachypnea. No retractions. Patient did clinically improve after receiving nebulizers here in the emergency department. Chest x-ray without evidence of an acute pneumonia. Patient able to ambulate without any respiratory distress. Based on patient's overall reassuring assessment, I believe they are stable for outpatient management with steroids. I do not suspect an acute alternative pathology at this time based on history and exam including acute pulmonary embolus, ACS, pneumothorax, or aortic dissection. At this time will discharge with return precautions and follow-up recommendations. Verbal discharge instructions given a the bedside and opportunity for questions given. Medication warnings reviewed. Patient is in agreement with this plan and has verbalized understanding of return precautions and the need for primary care follow-up in the next 24-72 hours. - Vital Signs Vital signs: Temp Pulse Resp BP Pulse Ox 97.5 F 68 14 115/59 L 97 11/21/16 02:12 11/21/16 02:12 11/21/16 02:12 11/21/16 02:12 11/21/16 02:12 - Diagnostic Test Radiology reviewed: Image reviewed, Reports reviewed Radiology results interpreted by me: 11/21/16 02:39 Chest x-ray: No acute infiltrate or pneumothorax Discharge - Discharge Clinical Impression: Asthma exacerbation Condition: Good Disposition: HOME, SELF-CARE Additional Instructions: You were seen for an asthma exacerbation. Your symptoms improved with treatment here in the emergency department. However, it is very important that you return to the emergency department immediately if you began to have worsening difficulty breathing that does not respond to your normal home nebulizers. You are also being sent home on a five-day course of steroids that you should start taking tomorrow. Please also follow closely with your primary care physician. you should also return to emergency department if you develop fever greater than 101, persistent cough, persistent vomiting, pass out, or any other symptoms that are concerning to you. Prescriptions: Prednisone [Deltasone 20 mg Tablet] 3 tab PO DAILY 5 Days tablet
--- NOTE | 2016-11-21 00:57 | RADIOLOGY REPORT (SQ) ---
EXAM DESCRIPTION: CHEST SINGLE VIEW COMPLETED DATE/TIME: 11/21/2016 12:44 am REASON FOR STUDY: shortness of breath COMPARISON: Chest x-ray 10/29/2016, 11/14/2014. EXAM PARAMETERS: NUMBER OF VIEWS: One view. TECHNIQUE: Single frontal radiographic view of the chest acquired. RADIATION DOSE: NA LIMITATIONS: None. FINDINGS: LUNGS AND PLEURA: No consolidation, pneumothorax or pleural effusion. MEDIASTINUM AND HILAR STRUCTURES: No masses. Contour normal. HEART AND VASCULAR STRUCTURES: Heart normal in size. Normal vasculature. BONES: No acute findings. HARDWARE: None in the chest. IMPRESSION: NO ACUTE RADIOGRAPHIC FINDING IN THE CHEST. TECHNICAL DOCUMENTATION: JOB ID: [id number]
[2016-11-21 02:27] VITALS: BP 115/59
== END 2016-11-21 02:15 | disposition home or self-care (01) ==
LOC: ER 23:30
DX: J45.901 Unspecified asthma with (acute) exacerbation (principal); R06.02 Shortness of breath; F17.200 Nicotine dependence, unspecified, uncomplicated
CPT/HCPCS: 94640; 99285; 71010; J7512; J3490; J7620

== ENCOUNTER 2017-03-22 03:24 | Emergency (ER) | payer MEDICAID, OTHER ==
[2017-03-22 04:01] VITALS: BP 113/70
[2017-03-22] MEDS ORDERED: ACETAMINOPHEN 325 MG TABLET PO ONE (04:12)
--- NOTE | 2017-03-22 04:16 | ER Document Report ---
HPI - HPI Patient complains to provider of: foot pain Pain Level: 3 Context: patient is a 26-year-old male who presents emergency department with a chief complaint of Bilateral foot discomfort. Patient states that he put his tennis shoes on this morning without any socks has been walking around and them all day since prior to arrival states that at one point there was very sweaty and he did well through paddle. States that his feet are aching. Did not take anything prior to arrival. Denies any fall, tenderness, direct injury Past Medical History - Social History Smoking Status: Current Every Day Smoker Family History: Reviewed & Not Pertinent Pulmonary Medical History: Reports: Hx Asthma Renal/ Medical History: Denies: Hx Peritoneal Dialysis Psychiatric Medical History: Reports: Hx Attention Deficit Hyperactivity Disorder, Hx Bipolar Disorder, Hx Depression, Hx Schizophrenia - Immunizations Immunizations up to date: Yes Hx Diphtheria, Pertussis, Tetanus Vaccination: Yes Vertical Provider Document - CONSTITUTIONAL Agree With Documented VS: Yes Notes: PHYSICAL EXAM GENERAL: Alert, interacts well. HEAD: Normocephalic, atraumatic. EXTREMITIES: Moves all 4 extremities spontaneously. No edema, radial and dorsalis pedis pulses 2/4 bilaterally. No cyanosis. NEUROLOGICAL: Alert and oriented x4. Normal speech. PSYCH: Normal affect, normal mood. SKIN: Warm, dry, normal turgor. No rashes or lesions noted. - INFECTION CONTROL TRAVEL OUTSIDE OF THE [place] IN LAST 30 DAYS: No - RESPIRATORY O2 Sat by Pulse Oximetry: 97 Course - Re-evaluation Re-evalutation: 03/22/17 04:13 Patient is a 26-year-old male who is hemodynamically stable, no acute distress and afebrile no evidence of a septic joint, gout flare, dislocation, or fracture on exam and imaging was not ordered given benign physical exam without evidence of deformity, edema, full range of motion, no tenderness and able to ambulate without any difficulty. Vitals wnl. At this time, I do not see an indication for labs or further imaging. Will discharge with conservative measures, return precautions, and follow-up recommendations. - Vital Signs Vital signs: Temp Pulse Resp BP Pulse Ox 97.5 F 83 20 113/70 97 03/22/17 03:56 03/22/17 03:56 03/22/17 03:56 03/22/17 03:56 03/22/17 03:56 Discharge - Discharge Clinical Impression: Visit for [facility] check Condition: Good Disposition: HOME, SELF-CARE Additional Instructions: Your complaint today is consistent with irritation of your feet due to not wearing clean socks. If your feet are not used to these conditions they can get sweaty and irritated. You can take Tylenol or Motrin as needed for discomfort but otherwise please utilize clean dry socks. You can also utilize warm soaks at home.
== END 2017-03-22 04:20 | disposition home or self-care (01) ==
LOC: ER 03:24
DX: M79.671 Pain in right foot (principal); M79.672 Pain in left foot; J45.909 Unspecified asthma, uncomplicated; F17.200 Nicotine dependence, unspecified, uncomplicated
CPT/HCPCS: 99283; J3490

== ENCOUNTER 2017-03-28 16:57 | Emergency (ER) | payer MEDICAID, OTHER ==
[2017-03-28 18:41] LABS: ABSOLUTE BASOPHILS # (AUTO) 0.1 10^3/uL (0.0-0.2); ABSOLUTE EOSINOPHILS # (AUTO) 0.4 10^3/uL (0.0-0.6); ABSOLUTE LYMPHOCYTES (AUTO) 1.6 10^3/uL (0.5-4.7); ABSOLUTE MONOCYTES (AUTO) 0.9 10^3/uL (0.1-1.4); ABSOLUTE NEUT (AUTO) 7.5 10^3/uL (1.7-8.2); BASOPHILS % (AUTO) 0.6 % (0-2); EOSINOPHILS % (AUTO) 4.1 % (0-6); HEMATOCRIT 45.2 % (37.9-51.0); HEMOGLOBIN 15.7 g/dL (13.5-17.0); LYMPHOCYTES % (AUTO) 15.5 % (13-45); MEAN CORPUSCULAR HEMOGLOBIN 30.5 pg (27.0-33.4); MEAN CORPUSCULAR HGB CONC 34.7 g/dL (32.0-36.0); MEAN CORPUSCULAR VOLUME 88 fl (80-97); MONOCYTES % (AUTO) 8.6 % (3-13); PLATELET COUNT 246 10^3/uL (150-450); RED BLOOD COUNT 5.15 10^6/uL (4.35-5.55); RED CELL DISTRIBUTION WIDTH 13.5 % (11.5-14.0); SEGMENTED NEUTROPHILS % (AUTO) 71.2 % (42-78); TOTAL CELLS COUNTED % (AUTO) 100 %; WHITE BLOOD COUNT 10.5 10^3/uL (4.0-10.5)
[2017-03-28 18:46] LABS: APPEARANCE,URINE SLIGHTLY-CLOUDY; BILIRUBIN,URINE NEGATIVE (NEGATIVE); COLOR,URINE YELLOW; GLUCOSE, URINE NEGATIVE (NEGATIVE); KETONES,URINE NEGATIVE (NEGATIVE); LEUKOCYTE ESTERASE,URINE NEGATIVE (NEGATIVE); NITRITE,URINE NEGATIVE (NEGATIVE); PROTEIN,URINE NEGATIVE (NEGATIVE); URINE SPECIFIC GRAVITY 1.013; UROBILINOGEN,URINE NEGATIVE mg/dL (<2.0)
[2017-03-28 19:01] LABS: URINE AMPHETAMINES SCREEN NEGATIVE; URINE BARBITURATES SCREEN NEGATIVE; URINE BENZODIAZEPINES SCREEN NEGATIVE; URINE COCAINE SCREEN NEGATIVE; URINE MARIJUANA (THC) SCREEN UNCONFIRMED POSITIVE; URINE METHADONE SCREEN NEGATIVE; URINE PHENCYCLIDINE SCREEN NEGATIVE
[2017-03-28] MEDS ORDERED: HALOPERIDOL 5 MG TABLET PO ONE (19:03)
[2017-03-28] MEDS ORDERED: HYDROXYZINE PAMOATE 50 MG CAPSULE PO ONE (19:03)
--- NOTE | 2017-03-28 19:07 | ER Document Report ---
ED General - General Chief Complaint: Psych Problem Stated Complaint: ALTERED MENTAL STATUS Time Seen by Provider: 03/28/17 18:24 Cannot obtain history due to: Uncooperative Notes: Patient is a 26-year-old male with a past medical history of schizoaffective disorder, currently off all medications for the past 3 months who presents with his mother with concerns of increasingly erratic behavior. [place] the [place] today by his mother, pacing, and talking to himself. He apparently was on multiple medications in the past 3 months but self discontinued these. Mother' s noted a progressive worsening of his baseline mannerisms since that time. He has had a history of similar behavioral disturbances off medications in the past. The patient himself seems quite anxious, pacing about the room, does not make direct eye contact, does not provide meaningful history. He denies any acute suicidal or homicidal ideation. Mother notes that he has not expressed any violent desires or behaviors to her. He denies any acute medical concerns or complaints. TRAVEL OUTSIDE OF THE [place] IN LAST 30 DAYS: No - Related Data Allergies/Adverse Reactions: No Known Allergies Allergy (Verified 03/28/17 18:09) Past Medical History - General Information source: Patient, Relative - Social History Smoking Status: Current Every Day Smoker Chew tobacco use (# tins/day): No Frequency of alcohol use: None Drug Abuse: None Lives with: Alone Family History: Reviewed & Not Pertinent Patient has suicidal ideation: No Patient has homicidal ideation: No Pulmonary Medical History: Reports: Hx Asthma Renal/ Medical History: Denies: Hx Peritoneal Dialysis Psychiatric Medical History: Reports: Hx Attention Deficit Hyperactivity Disorder, Hx Bipolar Disorder, Hx Depression, Hx Schizophrenia - Immunizations Immunizations up to date: Yes Hx Diphtheria, Pertussis, Tetanus Vaccination: Yes Review of Systems - Review of Systems Notes: Constitutional: Negative for fever. HENT: Negative for sore throat. Eyes: Negative for visual changes. Cardiovascular: Negative for chest pain. Respiratory: Negative for shortness of breath. Gastrointestinal: Negative for abdominal pain, vomiting or diarrhea. Genitourinary: Negative for dysuria. Musculoskeletal: Negative for back pain. Skin: Negative for rash. Neurological: Negative for headaches, weakness or numbness. 10 point ROS negative except as marked above and in HPI. Physical Exam - Vital signs Vitals: Temp Pulse Resp BP Pulse Ox 97.7 F 77 16 138/81 H 99 03/28/17 17:27 03/28/17 17:27 03/28/17 17:27 03/28/17 17:27 03/28/17 17:27 Interpretation: Normal Notes: PHYSICAL EXAMINATION: GENERAL: Well-appearing, well-nourished, pacing around the room HEAD: Atraumatic, normocephalic. EYES: Pupils equal round and reactive to light, extraocular movements intact, sclera anicteric, conjunctiva are normal. ENT: nares patent, oropharynx clear without exudates. Moist mucous membranes. NECK: Normal range of motion, supple without lymphadenopathy LUNGS: Breath sounds clear to auscultation bilaterally and equal. No wheezes rales or rhonchi. HEART: Regular rate and rhythm without murmurs ABDOMEN: Soft, nontender, normoactive bowel sounds. No guarding, no rebound. No masses appreciated. EXTREMITIES: Normal range of motion, no pitting or edema. No cyanosis. NEUROLOGICAL: No focal neurological deficits. Moves all extremities spontaneously and on command. PSYCH: Does not make direct eye contact, appears somewhat anxious, intermittent talking to himself. SKIN: Warm, Dry, normal turgor, no rashes or lesions noted. Course - Re-evaluation Re-evalutation: 03/28/17 19:04 Patient presents mildly agitated, appears to be responding to internal stimuli but is redirectable. He denies any acute suicidal homicidal ideation. His mother at the bedside reports that he has been off of all of his medications for schizoaffective disorder for at least the past 3 months. She states she found him at the mall today walking around, talking to himself. She notes that he has not demonstrated any violent behavior toward himself or others but she was concerned that he appeared to be decompensating off of his medications of brought him to the emergency department. I agree with the mother that the patient appears to be acutely psychotic although not immediately dangerous. He has agreed to take oral medications including haloperidol and hydroxyzine. Medical screening exam is otherwise unremarkable. Medical screening labs have been sent. He will remain in the emergency department overnight on a voluntary basis. - Vital Signs Vital signs: Temp Pulse Resp BP Pulse Ox 98.1 F 60 18 125/69 98 03/28/17 20:03 03/28/17 20:03 03/28/17 20:03 03/28/17 20:03 03/28/17 20:03 - Laboratory Result Diagrams: 03/28/17 18:25 03/28/17 18:25 Laboratory results interpreted by me: 03/28/17 18:25 Salicylates < 1.0 L Acetaminophen < 10 L - EKG Interpretation by Me Additional EKG results interpreted by me: 03/28/17 19:06 Normal sinus rhythm. Rate 74. No ST elevations or depressions. QTC is 449. Discharge - Discharge Clinical Impression: Schizoaffective disorder Qualifiers: Schizoaffective disorder type: unspecified Qualified Code(s): F25.9 - Schizoaffective disorder, unspecified Psychosis Qualifiers: Psychosis type: unspecified psychosis type Qualified Code(s): F29 - Unspecified psychosis not due to a substance or known physiological condition Condition: Stable Disposition: PSYCH HOSP/UNIT Referrals: GISSEL HEREDIA MD [Primary Care Provider] - Follow up as needed
[2017-03-28 19:10] LABS: ALANINE AMINOTRANSFERASE 28 U/L (21-72); ALBUMIN 4.3 g/dL (3.5-5.0); ALKALINE PHOSPHATASE 66 U/L (38-126); ANION GAP 10 (5-19); ASPARTATE AMINO TRANSFERASE 26 U/L (17-59); BILIRUBIN,DIRECT 0.1 mg/dL (0.0-0.4); BILIRUBIN,TOTAL 0.4 mg/dL (0.2-1.3); BLOOD UREA NITROGEN 14 mg/dL (7-20); CARBON DIOXIDE 29 mmol/L (22-30); CHLORIDE 104 mmol/L (98-107); GLUCOSE 77 mg/dL (75-110); SODIUM 142.5 mmol/L (137-145); TOTAL PROTEIN 7.2 g/dL (6.3-8.2)
[2017-03-28 19:11] LABS: ACETAMINOPHEN < 10 ug/mL (10-30); ALCOHOL < 10 mg/dL (NONE DETECTED); SALICYLATE < 1.0 mg/dL (2.0-20.0)
--- NOTE | 2017-03-28 22:34 | EKG REPORT ---
SEVERITY:- BORDERLINE ECG - SINUS RHYTHM PROBABLE LEFT ATRIAL ABNORMALITY INFERIOR Q WAVES, PROBABLY NORMAL VARIATION : Confirmed by: Cherelle Calhoun 28-Mar-2017 22:33:48
--- NOTE | 2017-03-29 10:12 | ER Document Report ---
Doctor's Note Notes: 03/29/17 10:12 Rounds: Chart reviewed and patient interviewed. Patient is calm and cooperative and answers questions appropriately. Vital signs were all normal. Labs are all normal except for being positive for marijuana on his drug screen. Patient appears to be medically stable for transfer or discharge. Deanna Hamilton MD
--- NOTE | 2017-03-29 11:36 | PSYCHOLOGICAL NOTE ---
Psych Note - Psych Note Psych Note: Patient is a 26 year old male who presented to the ED last evening by his mother for having been missing for 2 weeks, she found him wandering at the mall yesterday with erratic behavior, he has a paranoid schizophrenia diagnosis by history and has been off medication. He was sleeping and easily aroused though had startle response. He kept falling back asleep and required verbal prompting to stay awake. He was calm and cooperative. He stated he is in the ED to go to [facility] because his mother brought him. He identified he lives in a different residence than his mother and has not been missing for two weeks. He admitted to a previous diagnosis of Schizoaffective, that he needs to "recuperate and stay on medications," and there was "no reason" he stopped his medications. At first he stated he is supposed to be taking Adderall and Klonopin. When confronted these medications do not address Schizoaffective he stated he is also supposed to be taking Abilify and "other stuff." He admitted to previous hospitalizations and commented the last one was 2.5 years ago. He denied current ETOH and SA use while admitting to previous Cannabis use (not in the past two weeks). He denied SI/HI. Diagnosis: 295.70 (F25.0) Schizo-affective Disorder, Bipolar Type by History (per patient) Impression/Plan: Patient is psychiatrically cleared. He deos not meet [place] IVC criteria. He denied SI/HI and no observed psychosis though he did present lethargic (had been sleeping). Recommendation to begin medication regimen and if no medical issues discharge with outpatient follow up. Consulted with Dr. Huitron regarding the management and care. Dr. Huitron to address plan of care (see her note).
[2017-03-29] MEDS ORDERED: OLANZAPINE 5 MG TABLET PO ONE (16:23)
[2017-03-29] MEDS ORDERED: BENZTROPINE MESYLATE 1 MG TABLET PO ONE (16:24)
[2017-03-29] MEDS ORDERED: OLANZAPINE 5 MG TABLET PO SCH ×2 (18:00)
[2017-03-29] MEDS ORDERED: OLANZAPINE 5 MG TAB.RAPDIS PO ONE (19:48)
[2017-03-29 20:31] VITALS: BP 120/66
--- NOTE | 2017-03-30 09:43 | PSYCHOLOGICAL NOTE ---
Psych Note - Psych Note Psych Note: Met with Patient who was anxious to leave. He had received multiple doses of zyprexa throughout the day which appeared to help him with managing his behavior and mood. Patient is not on IVC. Had a long conversation with Patient regarding medication compliance and the consequences should he continue to refuse to take medication on an outpatient basis. He was scheduled to follow with his outpatient provider and provided scripts for zyprexa and cogentin. Patient was alert and oriented to person, place, time, and circumstance. Mood was anxious and affect was flat. He denied suicidal / homicidal ideation, intent , or plan. He denied auditory/visual hallucinations and no delusions were noted. He did not appear to be responding to internal stimuli. Thought processes were linear, logical, and rational. Conversational speech was within normal limits for rate, tone, and prosody. Intellectual abilities were estimated within the average range. Eye contact was well maintained. Attention and concentration was within normal limits. Insight, judgment, and impulse control were historically poor. 1. 295.90 (F20.0) Schizophrenia, Continuous Impression / Plan: Patient is psychiatrically clear for discharge. The medication appeared to clear any symptoms he might have presented with. Education regarding medication compliance was provided as well the consequences for failing to take his medications was discussed. Patient was advised to follow up with his outpatient provider and scheduled appointment. ED Provider in agreement with recommendation and disposition.
[2017-03-30] MEDS ORDERED: BENZTROPINE MESYLATE 1 MG TABLET PO SCH (10:00)
== END 2017-03-29 20:37 | disposition home or self-care (01) ==
LOC: ER 16:57
DX: F25.9 Schizoaffective disorder, unspecified (principal); F29 Unspecified psychosis not due to a substance or known physiological condition; F17.200 Nicotine dependence, unspecified, uncomplicated
CPT/HCPCS: 93005; 99285; 36415; 80307 ×4; 85025; 80053; 81001; 93010; J3490 ×5

== ENCOUNTER 2017-04-27 00:31 | Emergency (ER) | payer MEDICAID, OTHER ==
[2017-04-27 00:45] LABS: ABSOLUTE BASOPHILS # (AUTO) 0.1 10^3/uL (0.0-0.2); ABSOLUTE LYMPHOCYTES (AUTO) 1.4 10^3/uL (0.5-4.7); ABSOLUTE MONOCYTES (AUTO) 0.9 10^3/uL (0.1-1.4); ABSOLUTE NEUT (AUTO) 13.9 10^3/uL (1.7-8.2); BASOPHILS % (AUTO) 0.4 % (0-2); EOSINOPHILS % (AUTO) 0.1 % (0-6); HEMATOCRIT 46.4 % (37.9-51.0); LYMPHOCYTES % (AUTO) 8.8 % (13-45); MEAN CORPUSCULAR HEMOGLOBIN 29.6 pg (27.0-33.4); MEAN CORPUSCULAR HGB CONC 34.4 g/dL (32.0-36.0); MEAN CORPUSCULAR VOLUME 86 fl (80-97); MONOCYTES % (AUTO) 5.8 % (3-13); PLATELET COUNT 215 10^3/uL (150-450); RED BLOOD COUNT 5.39 10^6/uL (4.35-5.55); RED CELL DISTRIBUTION WIDTH 12.7 % (11.5-14.0); SEGMENTED NEUTROPHILS % (AUTO) 84.9 % (42-78); TOTAL CELLS COUNTED % (AUTO) 100 %; WHITE BLOOD COUNT 16.4 10^3/uL (4.0-10.5)
--- NOTE | 2017-04-27 00:47 | ER Document Report ---
ED Psych Disorder / Suicide - General Chief Complaint: Psych Problem Stated Complaint: PSYCH EVAL Notes: The patient is a 26-year-old male, past medical history schizoaffective disorder , presents after he was at the [facility] exhibiting bizarre behavior. According to EMS, he was acting erratically after his roommate kicked him out of his house. Patient said he has not been taking his psychiatric medications and he is hearing voices, but these are not troubling to him. Patient told EMS that his hands are bleeding, but there is no evidence of any blood on his hands. Looking through patient's prior records, he is supposed to be on Zyprexa ODT 5 mg twice daily and Cogentin 1 mg daily. Patient said he only smoked weed and took a Speed Stack supplement (high amount or Caffeine), but denies any other drug use or alcohol use. He denies suicidal ideation, homicidal ideation, chest pain, shortness of breath, headache, blurry vision, neck stiffness or fevers. TRAVEL OUTSIDE OF THE [place] IN LAST 30 DAYS: No - Related Data Allergies/Adverse Reactions: No Known Allergies Allergy (Verified 03/28/17 18:09) Past Medical History - General Information source: Patient, Emergency Med Personnel - Social History Smoking Status: Current Every Day Smoker Frequency of alcohol use: Occasional Drug Abuse: Marijuana Lives with: Friend Family History: Reviewed & Not Pertinent Pulmonary Medical History: Reports: Hx Asthma Renal/ Medical History: Denies: Hx Peritoneal Dialysis Psychiatric Medical History: Reports: Hx Attention Deficit Hyperactivity Disorder, Hx Bipolar Disorder, Hx Depression, Hx Schizophrenia - Immunizations Immunizations up to date: Yes Hx Diphtheria, Pertussis, Tetanus Vaccination: Yes Review of Systems - Review of Systems Notes: REVIEW OF SYSTEMS: CONSTITUTIONAL: -fevers, -chills EENT: -eye pain, -difficulty swallowing, -nasal congestion CARDIOVASCULAR: -chest pain, -syncope. RESPIRATORY: -cough, -SOB GASTROINTESTINAL: -abdominal pain, -nausea, -vomiting, -diarrhea GENITOURINARY: -dysuria, -hematuria MUSCULOSKELETAL: -back pain, -neck pain SKIN: -rash or skin lesions. HEMATOLOGIC: -easy bruising or bleeding. LYMPHATIC: -swollen, enlarged glands. NEUROLOGICAL: -altered mental status or loss of consciousness, -headache, - neurologic symptoms PSYCHIATRIC: -anxiety, -depression, +bizarre behavior, +hallucinations ALL OTHER SYSTEMS REVIEWED AND NEGATIVE. Physical Exam - Vital signs Vitals: Resp BP Pulse Ox 25 H 115/85 96 04/27/17 00:52 04/27/17 00:52 04/27/17 00:52 - Notes Notes: PHYSICAL EXAMINATION: GENERAL: Well-appearing, well-nourished and in no acute distress. Pacing around room. HEAD: Atraumatic, normocephalic. EYES: Pupils equal round and reactive to light, extraocular movements intact, sclera anicteric, conjunctiva are normal. ENT: nares patent, oropharynx clear without exudates. Moist mucous membranes. NECK: Normal range of motion, supple without lymphadenopathy LUNGS: Breath sounds clear to auscultation bilaterally and equal. No wheezes rales or rhonchi. HEART: Tachycardia, regular rhythm. ABDOMEN: Soft, nontender, normoactive bowel sounds. No guarding, no rebound. No masses appreciated. EXTREMITIES: Normal range of motion, no pitting or edema. No cyanosis. NEUROLOGICAL: Cranial nerves grossly intact. Normal speech, normal gait. Normal sensory and motor exams. PSYCH: Bizarre affect. Denies SI or HI. SKIN: Warm, Dry, normal turgor, no rashes or lesions noted. Course - Re-evaluation Re-evalutation: 04/27/17 00:44 Pt in no acute distress on arrival to the ER. He is tachycardic and this is most likely related to his recent Speed Stack use, which has a very large amount of caffeine. He denies any other drug use, other than marijuana, and he does not think that the marijuana was laced with any stimulants. Will continue to monitor for improvement of his tachycardia. Patient also has a leukocytosis, but no fever or source of infection. He does not appear to be encephalopathic or meningitic at this time and is not septic. The leukocytosis is non-specific at this time and may be related to his earlier agitation. Looking through patient's prior visit, pt frequently displays bizarre behavior when he does not take his meds. He is supposed to be on Zyprexa and Cogentin, but patient has not taken these meds in several weeks. Provided him with a dose and will have mental health evaluate patient in the morning for any further recommendations. Patient denies any SI or HI. Pt's tachycardia resolved after 2L IVF. He said that he is mostly drinking only energy drinks and not much water. - Vital Signs Vital signs: Temp Pulse Resp BP Pulse Ox 21 H 121/78 100 04/27/17 02:00 04/27/17 02:00 04/27/17 02:00 - Laboratory Result Diagrams: 04/27/17 00:30 04/27/17 00:30 Laboratory results interpreted by me: 04/27/17 04/27/17 04/27/17 00:30 00:30 00:30 WBC 16.4 H Seg Neutrophils % 84.9 H Lymphocytes % 8.8 L Absolute Neutrophils 13.9 H Glucose 121 H Creatine Kinase 203 H Salicylates < 1.0 L Acetaminophen < 10 L - EKG Interpretation by Hi EKG shows normal: Sinus rhythm, [place], Intervals, QRS Complexes, ST-T Waves Rate: Tachycardia Discharge - Discharge Clinical Impression: Bizarre behavior Schizoaffective disorder Qualifiers: Schizoaffective disorder type: unspecified Qualified Code(s): F25.9 - Schizoaffective disorder, unspecified Caffeine intoxication Qualifiers: Complication of substance-induced condition: uncomplicated Qualified Code(s): F15.920 - Other stimulant use, unspecified with intoxication, uncomplicated Condition: Stable
[2017-04-27 00:55] LABS: ALANINE AMINOTRANSFERASE 28 U/L (21-72); ALBUMIN 4.7 g/dL (3.5-5.0); ALKALINE PHOSPHATASE 73 U/L (38-126); ANION GAP 12 (5-19); ASPARTATE AMINO TRANSFERASE 27 U/L (17-59); BILIRUBIN,DIRECT 0.4 mg/dL (0.0-0.4); BILIRUBIN,TOTAL 0.5 mg/dL (0.2-1.3); BLOOD UREA NITROGEN 12 mg/dL (7-20); CALCIUM 9.9 mg/dL (8.4-10.2); CARBON DIOXIDE 25 mmol/L (22-30); CHLORIDE 107 mmol/L (98-107); GLUCOSE 121 mg/dL (75-110); POTASSIUM 3.7 mmol/L (3.6-5.0); SODIUM 144.4 mmol/L (137-145); TOTAL PROTEIN 7.6 g/dL (6.3-8.2)
[2017-04-27] MEDS: OLANZAPINE 5 MG TAB.RAPDIS PO SCH ×3 (00:56→10:09)
[2017-04-27 00:57] LABS: ACETAMINOPHEN < 10 ug/mL (10-30); ALCOHOL < 10 mg/dL (NONE DETECTED); SALICYLATE < 1.0 mg/dL (2.0-20.0)
[2017-04-27] MEDS: BENZTROPINE MESYLATE 1 MG TABLET PO SCH ×2 (00:57→02:10)
[2017-04-27] MEDS: NORMAL SALINE 1000 ML 1,000 ML IV PRN ×2 (01:25→01:27)
--- NOTE | 2017-04-27 08:51 | PSYCHOLOGICAL NOTE ---
Psych Note - Psych Note Psych Note: Reason for consult; erratic behavior Time of consult; 7:40 AM Contact permissions; Patricia lucia phone #[phone] Patient is a 26-year-old male. Patient reports that he was at the store listening to music sitting down and hanging out. Patient reports they told him that that was okay. Patient reports he was feeling tired and a little dehydrated so maybe they thought he was acting weird but he reports does not have schizophrenia. Patient reports he remembers that a few years ago they diagnosed him with schizophrenia and gave him medication recommendations to which he took until he felt he did not need them anymore. Patient reports he had a fast heart rate yesterday because he took for stack caffeine pills because he was feeling tired. Patient reports that he runs a lot and so he has physical problems including his back and shoulder but states that he does not feel like he has any mental health problems. Patient reports that he does take Klonopin 1-1/2 mg 3 times daily and Prozazine 2 mg every night for anxiety and sleep. Patient reports last night he chose not to sleep and was not able to sleep. Patient reports he recently was in detention for 26 days for stealing a monster and to ice creams he was charged with a emelina misdemeanor. Patient reports he felt that this was a "stupid mistake". Patient reports he would like to speak to his mother so he could go home. Patient denies suicidal ideation. Collateral information; Patricia lucia in phone #[phone] Patient's mother reports she picked patient up yesterday after he was released from detention. Patient's mother reports she saw that he had taken caffeine pills and he agreed to stay in the home. Patient's mother reports that when she returned home patient was not home and then she received a call 2:00 AM stating that he was in the hospital. Patient's mother reports that he was recently diagnosed with schizophrenia, but refuses to take his medications. Patient's mother reports that patient last medication in December for his schizophrenia. Patient's mother reports that she is interested in pursuing getting guardianship of patient to help him with a long-term care plan. Patient's mother reports she agrees to transport patient home and is going to assist patient with obtaining treatment. Clinician attempted to contact collateral at 8:52 AM. Medication recommendations made by [facility] psychiatric provider Dr. Seamus MD includes; Haldol 100 mg IM once Diagnosis; 295.90 (F20.9) per history schizophrenia Impression/plan; patient is psychiatrically cleared for discharge. Recommendation for patient to follow-up with primary care provider. Patient's mother contacted and provided resources. Patient is not interested in outpatient services, however patient's mother will work towards getting patient treatment for his schizophrenia. Dr. Casey agrees with this disposition. Consulted with Dr. Huitron regarding the management and care of patient.
--- NOTE | 2017-04-27 09:00 | EKG REPORT ---
SEVERITY:- ABNORMAL ECG - SINUS TACHYCARDIA RIGHT ATRIAL ABNORMALITY BORDERLINE Q WAVES IN INFERIOR LEADS INFERIOR Q WAVES, PROBABLY NORMAL VARIATION BORDERLINE T ABNORMALITIES, INFERIOR LEADS : Confirmed by: Cherelle Calhoun 27-Apr-2017 08:59:41
[2017-04-27 09:10] LABS: APPEARANCE,URINE CLEAR; BILIRUBIN,URINE NEGATIVE (NEGATIVE); COLOR,URINE STRAW; GLUCOSE, URINE NEGATIVE (NEGATIVE); KETONES,URINE NEGATIVE (NEGATIVE); LEUKOCYTE ESTERASE,URINE NEGATIVE (NEGATIVE); NITRITE,URINE NEGATIVE (NEGATIVE); PROTEIN,URINE NEGATIVE (NEGATIVE); URINE SPECIFIC GRAVITY 1.005; UROBILINOGEN,URINE NEGATIVE mg/dL (<2.0)
[2017-04-27 09:20] LABS: URINE AMPHETAMINES SCREEN NEGATIVE; URINE BARBITURATES SCREEN NEGATIVE; URINE BENZODIAZEPINES SCREEN NEGATIVE; URINE COCAINE SCREEN NEGATIVE; URINE MARIJUANA (THC) SCREEN UNCONFIRMED POSITIVE; URINE METHADONE SCREEN NEGATIVE; URINE PHENCYCLIDINE SCREEN NEGATIVE
[2017-04-27] MEDS ORDERED: HALOPERIDOL DECANOATE INJ 100 MG/1 ML VIAL IM STA (09:36)
[2017-04-27 10:21] VITALS: BP 118/70
== END 2017-04-27 10:22 | disposition home or self-care (01) ==
LOC: ER 00:31
DX: F15.920 Other stimulant use, unspecified with intoxication, uncomplicated (principal); F25.9 Schizoaffective disorder, unspecified; F99 Mental disorder, not otherwise specified; F17.200 Nicotine dependence, unspecified, uncomplicated
CPT/HCPCS: 93005; 99285; 96372; 96360; 36415; 80307 ×4; 82550; 85025; 80053; 81001; 93010; J3490 ×2; J1631; J7030

== ENCOUNTER 2017-06-12 22:41 | Emergency (ER) | payer OTHER ==
[2017-06-12] MEDS ORDERED: OLANZAPINE 5 MG TABLET PO ONE ×2 (23:14→23:22)
[2017-06-12 23:24] LABS: ABSOLUTE BASOPHILS # (AUTO) 0.1 10^3/uL (0.0-0.2); ABSOLUTE EOSINOPHILS # (AUTO) 0.4 10^3/uL (0.0-0.6); ABSOLUTE LYMPHOCYTES (AUTO) 2.1 10^3/uL (0.5-4.7); BASOPHILS % (AUTO) 0.5 % (0-2); EOSINOPHILS % (AUTO) 3.1 % (0-6); HEMATOCRIT 48.3 % (37.9-51.0); HEMOGLOBIN 16.7 g/dL (13.5-17.0); MEAN CORPUSCULAR HEMOGLOBIN 30.5 pg (27.0-33.4); MEAN CORPUSCULAR HGB CONC 34.6 g/dL (32.0-36.0); MEAN CORPUSCULAR VOLUME 88 fl (80-97); MONOCYTES % (AUTO) 8.5 % (3-13); PLATELET COUNT 223 10^3/uL (150-450); RED BLOOD COUNT 5.47 10^6/uL (4.35-5.55); RED CELL DISTRIBUTION WIDTH 13.5 % (11.5-14.0); SEGMENTED NEUTROPHILS % (AUTO) 69.9 % (42-78); TOTAL CELLS COUNTED % (AUTO) 100 %; WHITE BLOOD COUNT 11.4 10^3/uL (4.0-10.5)
[2017-06-12 23:31] LABS: ALANINE AMINOTRANSFERASE 47 U/L (21-72); ALBUMIN 4.3 g/dL (3.5-5.0); ALKALINE PHOSPHATASE 77 U/L (38-126); ANION GAP 12 (5-19); ASPARTATE AMINO TRANSFERASE 32 U/L (17-59); BILIRUBIN,DIRECT 0.3 mg/dL (0.0-0.4); BILIRUBIN,TOTAL 0.3 mg/dL (0.2-1.3); BLOOD UREA NITROGEN 12 mg/dL (7-20); CARBON DIOXIDE 27 mmol/L (22-30); CHLORIDE 105 mmol/L (98-107); GLUCOSE 97 mg/dL (75-110); SODIUM 143.8 mmol/L (137-145); TOTAL PROTEIN 7.5 g/dL (6.3-8.2)
[2017-06-12 23:32] LABS: ACETAMINOPHEN < 10 ug/mL (10-30); ALCOHOL < 10 mg/dL (NONE DETECTED); SALICYLATE < 1.0 mg/dL (2.0-20.0)
--- NOTE | 2017-06-12 23:35 | ER Document Report ---
ED General - General Chief Complaint: Psych Problem Stated Complaint: IVC WITH PAPERS Time Seen by Provider: 06/12/17 22:55 Notes: Patient is a 26 year old male with a past medical history of schizophrenia who presents on involuntary commitment. The patient himself is quite guarded on history taking although states that this is all a big misunderstanding. He states that his mother misinterpreted what he was talking earlier as being delusions of grandeur and that he does not have any visual or auditory hallucinations. The patient denies any suicidal or homicidal ideation. He states that he has been taking his prescribed medications as directed. He denies any drug or alcohol use. He denies any acute medical complaints. The patient himself denies any symptoms of any kind and is asking to go home. Involuntary commit informed that arise that the patient states that he has been having delusions of grandeur, believes he is in [place], threatening violence towards anybody who does not follow his commands. TRAVEL OUTSIDE OF THE [place] IN LAST 30 DAYS: No - Related Data Allergies/Adverse Reactions: HALDOL Adverse Reaction (Severe, Uncoded 06/12/17 22:56) Past Medical History - General Information source: Patient - Social History Smoking Status: Current Every Day Smoker Chew tobacco use (# tins/day): No Frequency of alcohol use: None Drug Abuse: None Lives with: Family Family History: Reviewed & Not Pertinent Patient has suicidal ideation: No Patient has homicidal ideation: No Pulmonary Medical History: Reports: Hx Asthma Renal/ Medical History: Denies: Hx Peritoneal Dialysis Psychiatric Medical History: Reports: Hx Attention Deficit Hyperactivity Disorder, Hx Bipolar Disorder, Hx Depression, Hx Schizophrenia - Immunizations Immunizations up to date: Yes Hx Diphtheria, Pertussis, Tetanus Vaccination: Yes Review of Systems - Review of Systems Notes: Constitutional: Negative for fever. HENT: Negative for sore throat. Eyes: Negative for visual changes. Cardiovascular: Negative for chest pain. Respiratory: Negative for shortness of breath. Gastrointestinal: Negative for abdominal pain, vomiting or diarrhea. Genitourinary: Negative for dysuria. Musculoskeletal: Negative for back pain. Skin: Negative for rash. Neurological: Negative for headaches, weakness or numbness. 10 point ROS negative except as marked above and in HPI. Physical Exam - Vital signs Vitals: Temp Pulse Resp BP Pulse Ox 97.9 F 100 16 127/78 H 100 06/12/17 22:55 06/12/17 22:55 06/12/17 22:55 06/12/17 22:55 06/12/17 22:55 Interpretation: Normal Notes: PHYSICAL EXAMINATION: GENERAL: Well-appearing, well-nourished and in no acute distress. HEAD: Atraumatic, normocephalic. EYES: Pupils equal round and reactive to light, extraocular movements intact, sclera anicteric, conjunctiva are normal. ENT: nares patent, oropharynx clear without exudates. Moist mucous membranes. NECK: Normal range of motion, supple without lymphadenopathy LUNGS: Breath sounds clear to auscultation bilaterally and equal. No wheezes rales or rhonchi. HEART: Regular rate and rhythm without murmurs ABDOMEN: Soft, nontender, normoactive bowel sounds. No guarding, no rebound. No masses appreciated. EXTREMITIES: Normal range of motion, no pitting or edema. No cyanosis. NEUROLOGICAL: No focal neurological deficits. Moves all extremities spontaneously and on command. PSYCH: Animated, interactive, mildly agitated but easily redirectable. Denies suicidal or homicidal ideation. Does not appear to be responding to internal stimuli. SKIN: Warm, Dry, normal turgor, no rashes or lesions noted. Course - Re-evaluation Re-evalutation: 06/12/17 23:23 Patient presents on involuntary commitment paperwork is filled out by his family for concerns of increasing agitation, violent behavior, and delusions. The patient is overall pleasant on contact, mildly agitated but redirectable. I have a good rapport with this patient from having interacted with him on multiple prior visits. He states that what is written on the involuntary paperwork is not true and that he was merely talking to his mother about spiritual warfare and she misunderstood what he was saying as hallucinations. Patient states that he has been taking his medication as directed. As patient' s involuntary commitment does have significant details that present concerning pieces of history I will keep him on involuntary commitment here in the emergency department. He has agreed to take olanzapine, screening exam unremarkable obtain standard screening laboratories and then reassess the patient. 06/13/17 03:41 Patient has remained calm and cooperative. Medical screening laboratories are unremarkable. He is cleared for evaluation and disposition by psychiatry. - Vital Signs Vital signs: Temp Pulse Resp BP Pulse Ox 97.9 F 100 16 127/78 H 100 06/12/17 22:55 06/12/17 22:55 06/12/17 22:55 06/12/17 22:55 06/12/17 22:55 - Laboratory Result Diagrams: 06/12/17 23:00 06/12/17 23:00 Laboratory results interpreted by me: 06/12/17 06/12/17 23:00 23:00 WBC 11.4 H Salicylates < 1.0 L Acetaminophen < 10 L Discharge - Discharge Clinical Impression: Delusions, Agitation Schizophrenia Qualifiers: Schizophrenia type: unspecified Qualified Code(s): F20.9 - Schizophrenia, unspecified Condition: Fair
[2017-06-13 00:36] LABS: APPEARANCE,URINE CLEAR; BILIRUBIN,URINE NEGATIVE (NEGATIVE); COLOR,URINE STRAW; GLUCOSE, URINE NEGATIVE (NEGATIVE); KETONES,URINE NEGATIVE (NEGATIVE); LEUKOCYTE ESTERASE,URINE NEGATIVE (NEGATIVE); NITRITE,URINE NEGATIVE (NEGATIVE); PROTEIN,URINE NEGATIVE (NEGATIVE); URINE SPECIFIC GRAVITY 1.005; UROBILINOGEN,URINE NEGATIVE mg/dL (<2.0)
[2017-06-13 01:24] LABS: URINE AMPHETAMINES SCREEN NEGATIVE; URINE BARBITURATES SCREEN NEGATIVE; URINE BENZODIAZEPINES SCREEN NEGATIVE; URINE COCAINE SCREEN NEGATIVE; URINE MARIJUANA (THC) SCREEN UNCONFIRMED POSITIVE; URINE METHADONE SCREEN NEGATIVE; URINE PHENCYCLIDINE SCREEN NEGATIVE
--- NOTE | 2017-06-13 10:01 | ER Document Report ---
Doctor's Note Notes: 06/13/17 10:00 Rounds: Chart reviewed and patient interviewed. Patient was admitted here last night. Reviewing his records shows that he has been to this emergency department for psychiatric problems, including anxiety, at least 10 times in the past year. He has a history of schizophrenia and today he is here because he was delusional and agitated. Patient says it is all a mistake. Lab studies show a white count of 11,400 but no evidence of any infection anywhere. Positive marijuana on drug screen. Vital signs are all normal. Patient appears to be medically stable for transfer or discharge. Deanna Hamilton MD
[2017-06-13] MEDS ORDERED: ZIPRASIDONE MESYLATE INJ/PF 20 MG SDV IM ONE (10:31)
[2017-06-13] MEDS ORDERED: HALOPERIDOL DECANOATE INJ 100 MG/1 ML VIAL IM ONE (10:32)
--- NOTE | 2017-06-13 12:43 | PSYCHOLOGICAL NOTE ---
Psych Note - Psych Note Psych Note: Reason for evaluation: Alleged aggression due to schizophrenia Eval : 0855 Final Disposition 10: 30 am Contact Permissions: Patient's mother Patricia Crawford [phone] Patient is a 26 year old male. Patient reports he was not going to hurt anyone and stated that he was just angry because the neighbors laugh at him often. Patient reports it is a possibility that the neighbors were not talking about him but that when he is angry he just needs to punch the air and let off some steam. Patient reports that his mom is always afraid that he is having a "episode, breakdown". Patient reports that he knows that he has schizophrenia and he takes his medication regularly and sees his doctor but states that he feels his mother is always afraid that he is having a "episode" but he knows that he is not because of the way he is thinking. Patient reports that he knows when his thinking is not right and states that he is just a spiritual person but once he starts talking about uatsdin his mother gets afraid of him. Patient reports that he has never hit anyone or anyone in his family because he loves them. Patient reports he loves his father other very much. Patient reports his mother is really supportive but that she is "loving him too hard". Patient reports that he likes to stick to himself and he goes to his therapy and wants to do psychosocial rehabilitation. Patient reports that when people are upset especially him the need to "break and reform" which is working through the situation and that he feels anger is okay. Patient reports he feels like his mom will let him be angry and wants to eventually get a job so he can live on his own. Patient reports that he does start talking about God because he does believe in God and spiritual. Patient reports he feels it is not fair that every time he gets angry and is punching the air or throw something he is sent to the hospital under involuntary commitment. Patient reports he is tired of involuntary commitments and feels that his mother is just holding him too tight. Addressing the Haldol allergy listed in the system Patient reported he was not allergic to medications, that his "mother told him he just gets angry while on it sometimes" because it does not work as good as the other medication. Collateral information: Patient's mother Patricia Crawford Patient's mother reports that she knows her son would never hurt anyone or hurt her. Patient's mother reports that he was so angry and threatened his dad because his dad is "tired of him". Patient's mother reports that her kicked her son out and she felt like she was stuck in the middle and patient had nowhere to go so she sent him to the hospital. She is mother reports that if she decides with her son she is going against her 's wishes but states that she is not financially stable to move out on her own with her son so she has to live with her . Patient's mother reports that it is exhausting because she knows that patient will always have schizophrenia and although he is taking his medications, he still has thoughts that other people are talking about him and then talking about God a lot. Patient's mother reports that patient is not welcome in the home but states that she will try to talk to her . Patient's mother reports that she knows that she needs to give patient a 30 day notice before she kicks him out on the street. Patient's mother reports she has not her son's guardian. Patient's mother reports that she wants patient to get psychosocial rehabilitation program and stated that [facility] has been [facility]. Patient's mother reports that he goes to his outpatient therapist for medication management and therapy regularly. Patient's mother reports that [facility] on how to get placement for patient as she feels like he needs more guidance. Patient's mother called back twice and explained she will allow him back home for now. Medication recommendations made by contracted [facility] provider Dr. Seamus MD includes 1. Begin Geodon 20 mg IM now 2. Begin Haldol 100 mg IM now deconate (patient reports he is not allergic to Haldol but states his mother does not like the medication because she thinks it does not work) Diagnosis: Per Hx Schizophrenia Impression/Plan: Patient is psychiatrically cleared for discharge. Recommendation to rescind involuntary commitment due to patient not meeting criteria [place] GS 122C. Patient denied suicidal and homicidal ideation. Clinician is familiar with patient and has done an assessment previously. Clinician observed patient has an appropriate affect, brighter, is joking with clinician and also processing his anger. Clinician observed patient stated he wants to work on his anger and go to counseling with his mother. Clinician contacted patient's mother and coordinated care with her. Patient's mother stated she is not his guardian. Attending physician in agreement with plan. Consulted with Dr. Huitron regarding the management and care of patient. This note was written and utilizing [employer] software some grammatical errors may occur.
[2017-06-13 13:18] VITALS: BP 120/75
--- NOTE | 2017-06-13 19:41 | EKG REPORT ---
SEVERITY:- ABNORMAL ECG - SINUS RHYTHM PROBABLE LEFT VENTRICULAR HYPERTROPHY : Confirmed by: Rudolph Dean MD 13-Jun-2017 19:39:55
== END 2017-06-13 13:18 | disposition home or self-care (01) ==
LOC: ER 22:41
DX: Z04.6 Encounter for general psychiatric examination, requested by authority (principal); F20.9 Schizophrenia, unspecified; Z79.899 Other long term (current) drug therapy; F17.200 Nicotine dependence, unspecified, uncomplicated; J45.909 Unspecified asthma, uncomplicated
CPT/HCPCS: 93005; 99285; 36415; 80307 ×4; 85025; 80053; 81001; 93010; J3490